=== PATIENT | male | born 1985 | race Caucasian/White ===

== ENCOUNTER 2016-08-16 20:23 | Inpatient (IN) | payer MEDICAID ==
[~2016-08-16] VITALS: Ht 180.3 cm; Wt 85.0 kg
--- NOTE | ~2016-08-16 | PR ---
[place], [place] PROGRESS NOTE [id number] UNIT #: [id number] ROOM: 427 DOCTOR: JORDI PATEL MD BIRTHDATE: [birth year] DOS: 08/18/2016 SUBJECTIVE: The patient says his ankle swelling and redness has started improving with treatment with antibiotics. OBJECTIVE: VITAL SIGNS: Blood pressure 169/91, heart rate 61 beats and breathing 20 times per minute, temperature was 98.1 degrees Fahrenheit. GENERAL APPEARANCE: The patient is alert and oriented x 3, in no visible distress. HEENT AND NECK: Exam within normal limits. CARDIOVASCULAR SYSTEM: Heart rate is regular in rate and rhythm. S1 and S2 normally audible. LUNGS: Clear to auscultation. ABDOMEN: Soft, nontender. No obvious organomegaly. Bowel sounds are present. EXTREMITIES: Some redness and swelling in his left ankle which is improving. IMPRESSION: 1. The patient with cellulitis involving left ankle with 2 superficial skin wounds and he is an uncontrolled diabetic. Infection, and swelling and redness have started improving with treatment with IV Rocephin and vancomycin. The patient has been seen by Dr. May Yoon, the Infectious Disease specialist. 2. Type 1 diabetes mellitus with uncontrolled blood sugar and poor compliance with diet and treatment. 3. Chronic primary insomnia. Treated and controlled with temazepam. 4. Diabetic gastroparesis, treated with metoclopramide. The patient is asymptomatic. 5. Mixed hyperlipidemia. The patient on simvastatin, also takes aspirin. JORDI PATEL MD CM:PNTRANS [phone] JORDI PATEL MD 08/19/16 0451 interface
--- NOTE | ~2016-08-16 | WRIGHTHP ---
[place], [place] PATIENT HISTORY AND PHYSICAL EXAM NAME: MAXINE FULTON [facility] #: [id number] UNIT #: [id number] ROOM: 408 DOCTOR: JORDI PATEL MD BIRTHDATE: [birth year] DOS: 08/16/2016 HISTORY OF PRESENT ILLNESS: The patient is a 30-year-old gentleman with a past medical history of: 1. Type 1 insulin requiring diabetes mellitus, uncontrolled and poor compliance with treatment. 2. History of nicotine smoke dependence. 3. Poor compliance with treatment and previous history of diabetic ketoacidosis. 4. History of recurrent abdominal pains. 5. History of marijuana abuse. 6. Remote history of alcohol abuse. 7. History of peripheral diabetic polyneuropathy. The patient presented to the Emergency Department with complaints of increasing redness and swelling in his left ankle and leg area, it is spreading from some blisters that patient says he had few days earlier. The patient tells he was putting an antibiotic ointment on the area with no help. The patient was seen in the Emergency Department and diagnosed as having cellulitis involving the left ankle area with two small skin wounds. Being an uncontrolled diabetic, he was recommended for admission and further management. After admission, patient was started on IV vancomycin and Rocephin and the swelling and redness and the cellulitis has started improving. The patient was also seen by ID specialist, Dr. May Yoon, recommended doxycycline treatment after discharge as an outpatient. Type 1 diabetes mellitus uncontrolled, the patient is poorly compliant with diet and diabetic treatment. Blood sugars to be monitored. No chest pain. No shortness of breath. No GI or urinary symptoms. REVIEW OF SYSTEMS: LUNGS: No increasing shortness of breath or wheezing. GI: No nausea, vomiting, diarrhea or constipation. CARDIOVASCULAR: No chest pains or palpitations. SOCIAL HISTORY: , has 2 children. History of nicotine and alcohol abuse in the past, he still smokes cigarettes and also smokes marijuana off and on. FAMILY HISTORY: Noncontributory. HOME MEDICATIONS: The patient's home medications are aspirin, simvastatin, gabapentin, Levemir insulin, metoclopramide, lisinopril and temazepam. ALLERGIES: No known drug allergies. PHYSICAL EXAMINATION: GENERAL: Alert and oriented x 3, in no physical distress. The patient has swelling in 2 small areas of skin break just over his left ankle and spreading redness and swelling in the area, measuring about 5 inches in diameter. [place], [place] PATIENT HISTORY AND PHYSICAL EXAM NAME: MAXINE FULTON UNIT #: [id number] ROOM: [facility] DOCTOR: JORDI PATEL MD BIRTHDATE: [birth year] HEENT AND NECK: Extraocular movements are intact. Sclerae are anicteric. Oral mucosa is moist and clean. No obvious facial weakness. Neck is supple without any lymphadenopathy. No thyromegaly. No JVD. No carotid arterial bruits. LUNGS: Clear to auscultation. No wheezing. No rhonchi. CARDIOVASCULAR SYSTEM: Heart rate is regular in rate and rhythm. S1 and S2 normally audible. No significant murmur or any other abnormal cardiac sounds. ABDOMEN: Soft, nontender. No obvious organomegaly. Bowel sounds are present. No obvious herniation. EXTREMITIES: Without significant cyanosis or edema. Warm to touch. CENTRAL NERVOUS SYSTEM: Alert and oriented x 3. Cranial nerves II-XII are intact. Speech is normal. The patient is able to move all extremities. Normal muscle strength. Deep tendon reflexes are equal on both sides. Plantars were downgoing. LABORATORY DATA: Blood cultures negative. Wound cultures are negative. C-reactive protein is 0.64. No leukocytosis, normal CBC. Urine drug screen positive for benzodiazepines and marijuana. Doppler studies of the left leg were negative for deep vein thrombosis. IMPRESSION AND PLAN: 1. Type 1 uncontrolled diabetic with poor compliance with treatment and diet. The patient is started on no concentrated sweet diet, continued on insulin, blood sugars were ordered, and he was kept on a sliding scale of insulin. Sugars are ranging between 60 and 250 during the stay at the hospital. 2. As mentioned above, cellulitis involving left ankle, improving with antibiotics. The patient to be discharged to home tomorrow after completing his IV antibiotics at the hospital and he will be kept on doxycycline at home as recommended by Infectious Disease specialist. 3. Benign essential hypertension, blood pressures are controlled. The patient is on small dose of lisinopril. 4. Diabetic gastroparesis. The patient takes metoclopramide. He was asymptomatic. 5. Mixed hyperlipidemia, treated with simvastatin. 6. Chronic primary insomnia, treated with temazepam which has been continued. [place], [place] PATIENT HISTORY AND PHYSICAL EXAM NAME: MAXINE FULTON UNIT #: [id number] ROOM: 408 DOCTOR: JORDI PATEL MD BIRTHDATE: [birth year] JORDI PATEL MD CM:HISPHYS:PATIENT HISTORY AND PHYSICAL EXAMINATION [phone] [id number] JORDI PATEL MD 08/18/16 170 interface
--- NOTE | ~2016-08-16 | DS ---
[place], [place] DISCHARGE SUMMARY [id number] UNIT #: [id number] ROOM: 427 DOCTOR: JORGE JCJORDI Brittanie BIRTHDATE: [birth year] DOS: 08/19/2016 DISCHARGE DIAGNOSES: 1. Left ankle cellulitis with 2 superficial skin wounds, healing. Cellulitis resolved with treatment. 2. Type 1 diabetes mellitus, uncontrolled, with poor compliance with diet and treatment. 3. Chronic primary insomnia. 4. Diabetic gastroparesis history. 5. Mixed type hyperlipidemia. 6. History of marijuana abuse. 7. Remote history of alcohol abuse. 8. Diabetic peripheral polyneuropathy. 9. Nicotine smoke dependence. HOSPITAL COURSE: The patient presented to the Emergency Department with increasing redness and swelling in his left ankle area. The patient says it started like small blisters, which broke and then he was putting antibiotic ointment on it, but started spreading into his skin and he came to the Emergency Department. Being a diabetic with peripheral neuropathy and uncontrolled diabetes, he was admitted for IV antibiotics. Infectious Disease specialists were consulted and he was initially treated with Rocephin and vancomycin and his redness and swelling and cellulitis have completely resolved. The patient still has 2 small superficial skin lesions on the inner side of the left ankle and he was recommended to take doxycycline for 10 days after admission by Infectious Disease specialist. The patient is being discharged to home to follow up with his PCP, Dr. Jailene David, next week. Type 1 diabetes mellitus, uncontrolled. The patient is poorly compliant with his diet and treatment. Blood sugars at the hospital improved and are now generally ranging between 90-270. Nicotine smoke dependence. The patient encouraged to stop smoking cigarettes. He has been leaving the floor, his room, apparently out to smoke cigarettes against regulations. LABORATORY DATA: Blood cultures were negative. Normal CBC prior to discharge. Wound cultures were negative. DISCHARGE MANAGEMENT: Simvastatin 10 mg a day, aspirin 81 mg a day, gabapentin 800 mg b.i.d., metoclopramide 2.5 mg before meals, lisinopril 2.5 mg daily, doxycycline 100 mg b.i.d. for 10 days, temazepam 30 mg at bedtime p.r.n. for sleep. Follow up with his PCP, Dr. Jailene David, next week. [place], [place] DISCHARGE SUMMARY NAME: MAXINE FULTON UNIT #: [id number] ROOM: 427 DOCTOR: JORDI PATEL MD BIRTHDATE: [birth year] JORDI PATEL MD CM:ALONA [phone] JORDI PATEL MD 08/19/16 1725 interface
[~2016-08-16 20:23] MED LIST: ACTOS15 MG PO; AMOXIL500 M1 PO; AMOXIL500 MG PO; ANAPROX DS550 MG PO; ASPIRIN81 M1 PO; AUGMENTIN 875 M1 TAB PO; GABAPENTIN300 MG PO; GABAPENTIN800 MG PO; HUMALOG 751 UNIT/0.0 SC; HUMALOG100 U/ML SC; HUMULIN 70/30 703 M1 SC; INSULIN; JANUMET 500 MG-1 TA1 PO; LANTUS SOLOS100 U/M1 SC; LANTUS100 U/ML SC; LIPITOR20 MG PO; LIPITOR40 MG PO; LOMOTIL 0.025 M1 TAB PO; METFORMIN HCL500 MG PO; MOTRIN800 MG PO; NEURONTIN800 MG PO; NOVOLOG 701 UNIT/0.0 SC; NOVOLOG MIX 70/33 ML SC; NOVOLOG1 UNIT/0.0 SC; NOVOLOG10 ML IV; VICODIN1 TAB PO; ZESTRIL,PRINIVI20 MG PO; ZESTRIL10 MG PO; ZITHROMAX1 GM/PACKE; Zofran4 MG PO
[2016-08-16 20:39] VITALS: BP 135/73
[2016-08-16] MEDS ORDERED: LISINOPRIL5 MG PO (20:40)
[2016-08-16] MEDS ORDERED: REGLAN5 MG PO (20:41)
[2016-08-16] MEDS ORDERED: ASPIRIN ADULT L81 M1 PO (20:41)
[2016-08-16] MEDS ORDERED: ZOCOR10 MG PO (20:41)
[2016-08-16] MEDS ORDERED: VITAMIN D50000 UNIT PO (20:41)
[2016-08-16 21:26] LABS: BASO % 0.2 % (0.0-1.0); EOS # 0.2 10*3/uL (0.0-0.4); EOS % 2.1 % (1.0-4.0); HEMATOCRIT 38.8 % (42.0-52.0); HEMOGLOBIN 13.7 g/dl (14.0-18.0); LYMPH % 27.7 % (27.0-41.0); MEAN CELL VOLUME 84.9 fl (80.0-94.0); MEAN CORPUSCULAR HGB CONC 35.3 g/dl (33.0-37.0); MEAN PLATELET VOLUME 10.3 fl (9.6-12.3); MONO # 0.8 10*3/uL (0.1-1.0); NEUT # 6.7 10*3/uL (2.3-7.9); NEUT % 62.7 % (47.0-73.0); PLATELET COUNT AUTOMATED 156 10*3/uL (130-400); RED BLOOD COUNT 4.57 10*6/uL (4.50-5.90); RED CELL DISTRI WIDTH 12.3 % (0-14.5); WHITE BLOOD COUNT 10.7 10*3/uL (4.8-10.8)
[2016-08-16 21:41] LABS: ALBUMIN 3.4 gm/dl (3.1-4.5); ALKALINE PHOSPHATASE 99 U/L (45-117); BILIRUBIN, TOTAL 0.8 mg/dl (0.2-1.0); BUN 13 mg/dl (7-24); CARBON DIOXIDE 29 mmol/L (21-32); CHLORIDE 102 mmol/L (98-107); EST GLOM FILT AFRICAN AMERICAN > 60 ml/min; GLUCOSE 280 mg/dL (65-99); POTASSIUM 4.1 mmol/L (3.5-5.1); SGOT/AST 12 IU/L (3-35); SGPT/ALT 26 U/L (12-78); SODIUM 140 mmol/L (136-145); TOTAL PROTEIN 6.7 gm/dL (6.4-8.2)
[2016-08-16 21:48] LABS: TROPONIN I < 0.015 ng/ml (<0.045)
[2016-08-16 22:13] LABS: BILIRUBIN NEGATIVE (NEGATIVE); BLOOD TRACE-INTACT (NEGATIVE); CLARITY SL CLOUDY (CLEAR); COLOR YELLOW (YELLOW); GLUCOSE 3+ (NEGATIVE); KETONE NEGATIVE (NEGATIVE); LEUKO ESTERASE NEGATIVE (NEGATIVE); NITRITE NEGATIVE (NEGATIVE); PH 5.5 (5.0-9.0); PROTEIN NEGATIVE (NEGATIVE); SPECIFIC GRAVITY 1.025 (1.005-1.030)
[2016-08-16 22:26] LABS: ABG BASE EXCESS 1.9 mmol/L (-2.0-2.0); ABG CO2 CONTENT 27.9 mmol/L (23-27); ABG HCO3 26.5 mmol/l (22-26); ABG TEMPERATURE 98.3 F (98.0-99.0); ARTERIAL BLOOD GAS PH 7.402 (7.35-7.45)
[2016-08-16 22:28] LABS: URINE AMPHETAMINES < 1000 (1000ng/ml); URINE BARBITURATES < 200 (200ng/ml); URINE COCAINE < 300 (300ng/ml)
[2016-08-16 22:29] LABS: MUCOUS TRACE; WBC 0-2 wbc/hpf (0-5)
[2016-08-16 22:30] LABS: URINE REFLEX COMMENT NO (NO)
[2016-08-17 00:30] VITALS: BP 125/70
[2016-08-17] MEDS ORDERED: TEMAZEPAM30 MG PO (00:34)
[2016-08-17] MEDS ORDERED: LANTUS SOLOS100 U/M1 SC (00:36)
[2016-08-17 04:00] VITALS: BP 122/76
[2016-08-17 08:00] VITALS: BP 93/80
[2016-08-17 12:00] VITALS: BP 114/55
[2016-08-17 16:00] VITALS: BP 108/64
[2016-08-17 20:00] VITALS: BP 112/62
[2016-08-18] VITALS: BP 106/65
[2016-08-18 06:53] LABS: BASO % 0.3 % (0.0-1.0); EOS # 0.2 10*3/uL (0.0-0.4); EOS % 3.2 % (1.0-4.0); HEMATOCRIT 42.9 % (42.0-52.0); HEMOGLOBIN 14.8 g/dl (14.0-18.0); LYMPH # 3.5 10*3/uL (1.3-4.4); LYMPH % 47.6 % (27.0-41.0); MEAN CELL VOLUME 85.8 fl (80.0-94.0); MEAN CORPUSCULAR HGB 29.6 pg (27.0-31.0); MEAN CORPUSCULAR HGB CONC 34.5 g/dl (33.0-37.0); MEAN PLATELET VOLUME 11.2 fl (9.6-12.3); MONO # 0.4 10*3/uL (0.1-1.0); MONO % 5.9 % (3.0-9.0); NEUT # 3.2 10*3/uL (2.3-7.9); NEUT % 42.9 % (47.0-73.0); PLATELET COUNT AUTOMATED 182 10*3/uL (130-400); RED CELL DISTRI WIDTH 12.4 % (0-14.5); WHITE BLOOD COUNT 7.4 10*3/uL (4.8-10.8)
[2016-08-18 08:00] VITALS: BP 103/51
[2016-08-18 12:00] VITALS: BP 169/91
[2016-08-18] MEDS ORDERED: DOXYCYCLINE100 M3 PO (14:56)
[2016-08-18 16:00] VITALS: BP 119/68
[2016-08-18 20:00] VITALS: BP 134/82
[2016-08-19] VITALS: BP 114/68
[2016-08-19 06:55] LABS: BASO % 0.2 % (0.0-1.0); EOS # 0.1 10*3/uL (0.0-0.4); HEMATOCRIT 40.5 % (42.0-52.0); LYMPH # 2.5 10*3/uL (1.3-4.4); LYMPH % 38.6 % (27.0-41.0); MEAN CELL VOLUME 85.6 fl (80.0-94.0); MEAN CORPUSCULAR HGB 29.6 pg (27.0-31.0); MEAN CORPUSCULAR HGB CONC 34.6 g/dl (33.0-37.0); MEAN PLATELET VOLUME 10.9 fl (9.6-12.3); MONO # 0.5 10*3/uL (0.1-1.0); MONO % 8.3 % (3.0-9.0); NEUT # 3.2 10*3/uL (2.3-7.9); NEUT % 50.6 % (47.0-73.0); PLATELET COUNT AUTOMATED 175 10*3/uL (130-400); RED BLOOD COUNT 4.73 10*6/uL (4.50-5.90); RED CELL DISTRI WIDTH 12.1 % (0-14.5); WHITE BLOOD COUNT 6.4 10*3/uL (4.8-10.8)
[2016-08-19 07:36] LABS: BUN 9 mg/dl (7-24); EST GLOM FILT AFRICAN AMERICAN > 60 ml/min
[2016-08-19 08:00] VITALS: BP 112/65
[2016-08-19 12:00] VITALS: BP 124/69
== END 2016-08-19 15:59 | disposition home or self-care (01) | DRG 603 ==
LOC: ED 20:23 → 4E 22:59 → EDHOLD 22:59 → 4E 08-17 00:05
PROVIDERS: Emergency Medicine Emergency Medical Services; Hospitalist; Internal Medicine
DX: L03.116 Cellulitis of left lower limb (principal); K31.84 Gastroparesis; E10.65 Type 1 diabetes mellitus with hyperglycemia; E10.42 Type 1 diabetes mellitus with diabetic polyneuropathy; E44.1 Mild protein-calorie malnutrition; F17.210 Nicotine dependence, cigarettes, uncomplicated; I10 Essential (primary) hypertension; E78.2 Mixed hyperlipidemia; F51.01 Primary insomnia; F17.200 Nicotine dependence, unspecified, uncomplicated; F12.10 Cannabis abuse, uncomplicated; Z79.82 Long term (current) use of aspirin; Z82.5 Family history of asthma and other chronic lower respiratory diseases; Z83.3 Family history of diabetes mellitus; Z79.4 Long term (current) use of insulin; Z79.899 Other long term (current) drug therapy; Z68.26 Body mass index [BMI] 26.0-26.9, adult

== ENCOUNTER 2017-05-03 20:51 | Emergency (ER) | payer MEDICAID ==
[~2017-05-03] VITALS: Ht 175.2 cm; Wt 81.6 kg
[~2017-05-03 20:51] MED LIST changes: +ASPIRIN ADULT L81 M1 PO; +DOXYCYCLINE100 M3 PO; +LISINOPRIL5 MG PO; +REGLAN5 MG PO; +TEMAZEPAM30 MG PO; +VITAMIN D50000 UNIT PO; +ZOCOR10 MG PO
[2017-05-03 21:31] LABS: BASO % 0.1 % (0.0-1.0); EOS # 0.1 10*3/uL (0.0-0.4); EOS % 1.1 % (1.0-4.0); HEMATOCRIT 37.3 % (42.0-52.0); HEMOGLOBIN 13.4 g/dl (14.0-18.0); LYMPH # 3.2 10*3/uL (1.3-4.4); MEAN CELL VOLUME 82.7 fl (80.0-94.0); MEAN CORPUSCULAR HGB 29.7 pg (27.0-31.0); MEAN CORPUSCULAR HGB CONC 35.9 g/dl (33.0-37.0); MONO # 0.5 10*3/uL (0.1-1.0); MONO % 6.5 % (3.0-9.0); NEUT # 4.2 10*3/uL (2.3-7.9); NEUT % 52.2 % (47.0-73.0); PLATELET COUNT AUTOMATED 180 10*3/uL (130-400); RED BLOOD COUNT 4.51 10*6/uL (4.50-5.90); RED CELL DISTRI WIDTH 12.5 % (0-14.5)
[2017-05-03 21:47] LABS: ALKALINE PHOSPHATASE 93 U/L (45-117); BUN 12 mg/dl (7-24); CHLORIDE 96 mmol/L (98-107); POTASSIUM 3.2 mmol/L (3.5-5.1); SGOT/AST 9 IU/L (3-35); SGPT/ALT 21 U/L (12-78); SODIUM 131 mmol/L (136-145); TOTAL PROTEIN 7.1 gm/dL (6.4-8.2)
[2017-05-03] MEDS ORDERED: NAPROSYN500 MG PO (21:57)
[2017-05-03] MEDS ORDERED: AMOXICILLIN500 M2 PO (21:57)
== END 2017-05-03 23:40 | disposition home or self-care (01) ==
LOC: ED 20:51
PROVIDERS: Nurse Practitioner Family
DX: K08.89 Other specified disorders of teeth and supporting structures (principal); E10.9 Type 1 diabetes mellitus without complications; F17.200 Nicotine dependence, unspecified, uncomplicated; Z79.899 Other long term (current) drug therapy; Z79.82 Long term (current) use of aspirin; Z79.4 Long term (current) use of insulin

== ENCOUNTER 2017-07-13 15:39 | Emergency (ER) | payer MEDICAID ==
[~2017-07-13] VITALS: Ht 180.3 cm; Wt 83.9 kg
[~2017-07-13 15:39] MED LIST changes: +AMOXICILLIN500 M2 PO; +NAPROSYN500 MG PO
[2017-07-13 16:35] LABS: BASO % 0.1 % (0.0-1.0); EOS # 0.1 10*3/uL (0.0-0.4); EOS % 1.1 % (1.0-4.0); HEMATOCRIT 45.1 % (42.0-52.0); HEMOGLOBIN 15.8 g/dl (14.0-18.0); LYMPH # 1.9 10*3/uL (1.3-4.4); LYMPH % 26.2 % (27.0-41.0); MEAN CELL VOLUME 84.8 fl (80.0-94.0); MEAN CORPUSCULAR HGB 29.7 pg (27.0-31.0); MEAN PLATELET VOLUME 10.2 fl (9.6-12.3); MONO # 0.3 10*3/uL (0.1-1.0); MONO % 4.6 % (3.0-9.0); NEUT % 67.7 % (47.0-73.0); PLATELET COUNT AUTOMATED 191 10*3/uL (130-400); RED BLOOD COUNT 5.32 10*6/uL (4.50-5.90); RED CELL DISTRI WIDTH 12.4 % (0-14.5); WHITE BLOOD COUNT 7.4 10*3/uL (4.8-10.8)
[2017-07-13 16:49] LABS: ALBUMIN 4.1 gm/dl (3.1-4.5); ALKALINE PHOSPHATASE 85 U/L (45-117); BUN 26 mg/dl (7-24); CHLORIDE 93 mmol/L (98-107); CREATININE 1.27 mg/dL (0.70-1.30); LIPASE 34 U/L (73-393); POTASSIUM 3.8 mmol/L (3.5-5.1); SGOT/AST 23 IU/L (3-35); SGPT/ALT 30 U/L (12-78); SODIUM 134 mmol/L (136-145); TOTAL PROTEIN 7.9 gm/dL (6.4-8.2)
[2017-07-13] MEDS ORDERED: Zofran4 MG PO (17:54)
== END 2017-07-13 17:58 | disposition home or self-care (01) ==
LOC: ED 15:39
PROVIDERS: Emergency Medicine
DX: K29.70 Gastritis, unspecified, without bleeding (principal); E10.65 Type 1 diabetes mellitus with hyperglycemia; G62.9 Polyneuropathy, unspecified; F17.200 Nicotine dependence, unspecified, uncomplicated; F12.10 Cannabis abuse, uncomplicated; F14.10 Cocaine abuse, uncomplicated; Z79.82 Long term (current) use of aspirin; Z79.4 Long term (current) use of insulin; Z79.899 Other long term (current) drug therapy

== ENCOUNTER 2017-07-28 15:32 | Inpatient (IN) | payer MEDICAID ==
[2017-07-28] VITALS (7 sets, daily range): BP systolic 116–162; BP diastolic 64–84
[~2017-07-28] VITALS: Ht 180.3 cm; Wt 75.5 kg
--- NOTE | ~2017-07-28 | WRIGHTHP ---
[place], [place] PATIENT HISTORY AND PHYSICAL EXAM [id number] UNIT #: [id number] ROOM: [facility] DOCTOR: MECHE ROCK MD BIRTHDATE: [birth year] DOS: 07/28/2017 HISTORY OF PRESENT ILLNESS: This patient is 31-year-old. The patient states that he has been nauseous and sick in his stomach for the last 2-3 days prior to this admission and he has had multiple emesis and he has missed a few doses of insulin. He realized that he was having flank pain and continued to have high sugar, so decided to come into the Emergency Room. He denies having any fever, chills, any chest pains, palpitations, any abdominal pain, nausea, any emesis today. He feels better. He was seen in the Emergency Room and blood work revealed that he has diabetic ketoacidosis and he was admitted. With insulin drip and IV fluids, the diabetic ketoacidosis has corrected. The ketone levels have dropped down to normal this morning. PAST MEDICAL HISTORY: Significant for: 1. Type 1 diabetes mellitus. 2. Multiple hospitalizations for DKA,, the last one was 07/2016. 3. Diabetic gastroparesis. 4. Primary insomnia. 5. Diabetic peripheral neuropathy. SOCIAL HISTORY: Smokes about half to 1 pack of cigarettes a day. Denies any use of alcohol now. He lives with his and 2 children. PHYSICAL EXAMINATION: GENERAL: He is awake and alert and oriented. VITAL SIGNS: Graphic trend shows blood pressure of 117/84, pulse of 88, respirations 14, temperature 97.8. LUNGS: Diminished breath sounds. No wheezes, rales, rhonchi heard. HEART: Regular. ABDOMEN: Obese, soft, nontender. EXTREMITIES: Without any edema. ASSESSMENT AND PLAN: 1. Type 1 diabetes mellitus with diabetic ketoacidosis without coma. The patient has been admitted, IV insulin and IV fluids were ordered. This morning, the diabetic ketoacidosis has corrected. 2. Possible urinary tract infection. White cell count was normal on admission, but the urinalysis did show presence of 2+ bacteria. A reflex culture was sent. It shows preliminary no bacterial growth, but the patient was placed on Levaquin and can be discharged on the same medication. 3. Diabetic peripheral neuropathy, already on meds. No changes made in the treatment otherwise. [place], [place] PATIENT HISTORY AND PHYSICAL EXAM NAME: MAXINE FULTON UNIT #: [id number] ROOM: [facility] DOCTOR: MECHE ROCK MD BIRTHDATE: [birth year] MECHE ROCK MD CM:HISPHYS:PATIENT HISTORY AND PHYSICAL EXAMINATION [id number] MECHE ROCK MD 07/29/17 1740 interface
[~2017-07-28 15:32] MED LIST changes: +LANTUS SOL100 UNIT/1 SC
[2017-07-28 15:58] LABS: BASO % 0.2 % (0.0-1.0); EOS # 0.1 10*3/uL (0.0-0.4); EOS % 0.5 % (1.0-4.0); HEMATOCRIT 42.2 % (42.0-52.0); HEMOGLOBIN 15.2 g/dl (14.0-18.0); LYMPH # 2.2 10*3/uL (1.3-4.4); LYMPH % 22.1 % (27.0-41.0); MEAN CELL VOLUME 83.1 fl (80.0-94.0); MEAN CORPUSCULAR HGB 29.9 pg (27.0-31.0); MEAN PLATELET VOLUME 11.6 fl (9.6-12.3); MONO # 0.5 10*3/uL (0.1-1.0); NEUT # 7.2 10*3/uL (2.3-7.9); NEUT % 71.9 % (47.0-73.0); PLATELET COUNT AUTOMATED 231 10*3/uL (130-400); RED BLOOD COUNT 5.08 10*6/uL (4.50-5.90); RED CELL DISTRI WIDTH 12.2 % (0-14.5)
[2017-07-28 16:38] LABS: ALBUMIN 4.1 gm/dl (3.1-4.5); ALKALINE PHOSPHATASE 85 U/L (45-117); BUN 18 mg/dl (7-24); CHLORIDE 93 mmol/L (98-107); CREATININE 1.12 mg/dL (0.70-1.30); LIPASE 35 U/L (73-393); POTASSIUM 4.2 mmol/L (3.5-5.1); SGOT/AST 10 IU/L (3-35); SGPT/ALT 21 U/L (12-78); SODIUM 130 mmol/L (136-145); TOTAL PROTEIN 7.2 gm/dL (6.4-8.2)
[2017-07-28 17:17] LABS: BILIRUBIN 1+ (NEGATIVE); BLOOD 3+ (NEGATIVE); CLARITY SL CLOUDY (CLEAR); COLOR YELLOW (YELLOW); GLUCOSE 2+ (NEGATIVE); KETONE 3+ (NEGATIVE); LEUKO ESTERASE NEGATIVE (NEGATIVE); NITRITE NEGATIVE (NEGATIVE); PH 5.5 (5.0-9.0); SPECIFIC GRAVITY >= 1.030 (1.005-1.030); UROBILINOGEN 0.2 E.U./dl (0.2-1.0)
[2017-07-28 17:29] LABS: BACTERIA 2+; EPITHELIAL CELLS 0-2; MUCOUS TRACE; RBC 16-20 rbc/hpf (0-2); WBC 0-2 wbc/hpf (0-5)
[2017-07-28] MEDS ORDERED: HUMALOG100 UNIT/2 SC (18:27)
[2017-07-28] MEDS ORDERED: AMITRIPTYLINE25 MG PO (18:29)
[2017-07-29] VITALS: BP 119/71
[2017-07-29 04:00] VITALS: BP 108/51
[2017-07-29 06:06] LABS: BUN 16 mg/dl (7-24); CHLORIDE 102 mmol/L (98-107); CREATININE 1.09 mg/dL (0.70-1.30)
[2017-07-29 06:21] LABS: SODIUM 139 mmol/L (136-145)
[2017-07-29 06:49] LABS: BASO % 0.2 % (0.0-1.0); EOS # 0.2 10*3/uL (0.0-0.4); EOS % 2.3 % (1.0-4.0); LYMPH % 54.8 % (27.0-41.0); MEAN CELL VOLUME 83.1 fl (80.0-94.0); MEAN CORPUSCULAR HGB 30.3 pg (27.0-31.0); MEAN CORPUSCULAR HGB CONC 36.4 g/dl (33.0-37.0); MEAN PLATELET VOLUME 10.9 fl (9.6-12.3); MONO # 0.6 10*3/uL (0.1-1.0); MONO % 6.1 % (3.0-9.0); NEUT # 3.3 10*3/uL (2.3-7.9); NEUT % 36.4 % (47.0-73.0); RED BLOOD COUNT 4.26 10*6/uL (4.50-5.90); RED CELL DISTRI WIDTH 12.2 % (0-14.5); WHITE BLOOD COUNT 9.1 10*3/uL (4.8-10.8)
[2017-07-29 07:01] LABS: HEMATOCRIT 35.4 % (42.0-52.0); HEMOGLOBIN 12.9 g/dl (14.0-18.0); PLATELET COUNT AUTOMATED 157 10*3/uL (130-400)
[2017-07-29 08:00] VITALS: BP 118/67
[2017-07-29 12:00] VITALS: BP 117/84
[2017-07-29] MEDS ORDERED: CIPRO500 MG PO (15:35)
[2017-07-29] MEDS ORDERED: LANTUS SOL100 UNIT/1 SC (15:35)
== END 2017-07-29 16:00 | disposition home or self-care (01) | DRG 638 ==
LOC: ED 15:32 → EDHOLD 16:55 → ICCU 17:08
PROVIDERS: Internal Medicine; Nurse Practitioner Family
DX: E10.10 Type 1 diabetes mellitus with ketoacidosis without coma (principal); N39.0 Urinary tract infection, site not specified; E10.42 Type 1 diabetes mellitus with diabetic polyneuropathy; F51.01 Primary insomnia; F17.210 Nicotine dependence, cigarettes, uncomplicated; Z79.82 Long term (current) use of aspirin; Z79.4 Long term (current) use of insulin; Z79.899 Other long term (current) drug therapy; Z83.3 Family history of diabetes mellitus; Z82.5 Family history of asthma and other chronic lower respiratory diseases

== ENCOUNTER 2017-11-15 14:43 | Inpatient (IN) | payer MEDICAID ==
[~2017-11-15] VITALS: Ht 180 cm; Wt 76.7 kg
--- NOTE | ~2017-11-15 | WRIGHTHP ---
[place], [place] PATIENT HISTORY AND PHYSICAL EXAM NAME: MAXINE FULTON [facility] #: [id number] UNIT #: [id number] ROOM: 526 DOCTOR: MECHE ROCK MD BIRTHDATE: [birth year] DOS: 11/15/2017 HISTORY OF PRESENT ILLNESS: The patient is 32 years old. The patient comes with nausea and emesis about 1-day duration. He denies having any chest pains or palpitations, did have some abdominal discomfort. Denies having any fever or chills, was evaluated in the ER. Ketones were slightly positive, but he did not appear to be acidotic, so we did not admit him in the ICU, on an insulin drip instead. The patient was given IV fluids and admitted to the regular floor. The patient this morning has no complaints. His nausea and emesis, abdominal pain is all resolved. His blood sugars have been running much improved this morning at 213. Denies having any chest pains. PAST MEDICAL HISTORY: Significant for: 1. Last hospitalization in 07/2017 with a similar problem. 2. Type 1 diabetes. 3. Multiple hospitalizations for diabetic ketoacidosis. 4. Gastroparesis. 5. Primary insomnia. 6. Diabetic peripheral neuropathy. MEDICATIONS: Aspirin 81 daily, vitamin D 50,000, gabapentin 800 b.i.d., lisinopril 2.5 daily, metoclopramide 2.5 b.i.d., simvastatin 10 daily, lisinopril, Humalog 10 units subQ b.i.d., Lantus 40 units. SOCIAL HISTORY: Smoker of about half a pack of cigarettes. Denies using any alcohol. PHYSICAL EXAMINATION: GENERAL: He is awake and alert and oriented. VITAL SIGNS: Graph trend shows a pressure of 132/70, pulse of 80, respirations 14, afebrile. LUNGS: Diminished breath sounds. No wheezes, rales or rhonchi heard. HEART: Regular. ABDOMEN: Soft, scaphoid. EXTREMITIES: Without any edema. ASSESSMENT AND PLAN: 1. Nausea and emesis, most likely from combination of diabetic gastroparesis and acute gastritis. This is resolved. 2. Poorly controlled diabetes with hyperglycemia, improved with IV fluids. 3. Diabetic peripheral neuropathy. Pain is controlled,. The plan is to discharge him to home today. [place], [place] PATIENT HISTORY AND PHYSICAL EXAM NAME: MAXINE FULTON UNIT #: [id number] ROOM: 526 DOCTOR: MECHE ROCK MD BIRTHDATE: [birth year] MECHE ROCK MD CM:HISPHYS:PATIENT HISTORY AND PHYSICAL EXAMINATION [phone] MECHE ROCK MD 11/16/17 0822 interface
[~2017-11-15 14:43] MED LIST changes: +AMITRIPTYLINE25 MG PO; +CIPRO500 MG PO; +HUMALOG100 UNIT/2 SC
[2017-11-15 14:45] VITALS: BP 166/87
[2017-11-15 14:56] VITALS: BP 133/77
[2017-11-15 15:45] VITALS: BP 122/78
[2017-11-15 16:38] LABS: BASO % 0.1 % (0.0-1.0); EOS % 0.2 % (1.0-4.0); HEMATOCRIT 40.6 % (42.0-52.0); HEMOGLOBIN 13.7 g/dl (14.0-18.0); LYMPH # 1.8 10*3/uL (1.3-4.4); LYMPH % 14.9 % (27.0-41.0); MEAN CELL VOLUME 86.8 fl (80.0-94.0); MEAN CORPUSCULAR HGB 29.3 pg (27.0-31.0); MEAN CORPUSCULAR HGB CONC 33.7 g/dl (33.0-37.0); MONO # 0.6 10*3/uL (0.1-1.0); MONO % 4.9 % (3.0-9.0); NEUT # 9.5 10*3/uL (2.3-7.9); NEUT % 79.4 % (47.0-73.0); PLATELET COUNT AUTOMATED 186 10*3/uL (130-400); RED BLOOD COUNT 4.68 10*6/uL (4.50-5.90); RED CELL DISTRI WIDTH 12.6 % (0-14.5); WHITE BLOOD COUNT 11.9 10*3/uL (4.8-10.8)
[2017-11-15 16:46] LABS: ACT PARTIAL THROMBO TIME 21.9 SECONDS (20.8-31.5)
[2017-11-15 16:53] LABS: ALBUMIN 3.8 gm/dl (3.1-4.5); ALKALINE PHOSPHATASE 86 U/L (45-117); BUN 26 mg/dl (7-24); CHLORIDE 100 mmol/L (98-107); CREATININE 1.19 mg/dL (0.70-1.30); LIPASE 32 U/L (73-393); POTASSIUM 4.3 mmol/L (3.5-5.1); SGOT/AST 5 IU/L (3-35); SGPT/ALT 17 U/L (12-78); SODIUM 137 mmol/L (136-145); TOTAL PROTEIN 7.1 gm/dL (6.4-8.2); TROPONIN I < 0.015 ng/ml (<0.045)
[2017-11-15 17:08] LABS: BILIRUBIN 2+ (NEGATIVE); BLOOD 3+ (NEGATIVE); CLARITY CLEAR (CLEAR); COLOR YELLOW (YELLOW); GLUCOSE 2+ (NEGATIVE); KETONE 3+ (NEGATIVE); LEUKO ESTERASE NEGATIVE (NEGATIVE); NITRITE NEGATIVE (NEGATIVE); SPECIFIC GRAVITY 1.025 (1.005-1.030); UROBILINOGEN 0.2 E.U./dl (0.2-1.0)
[2017-11-15 17:15] LABS: BACTERIA TRACE; MUCOUS 1+
[2017-11-15 17:16] LABS: EPITHELIAL CELLS 0-2; RBC 31-40 rbc/hpf (0-2)
[2017-11-15 18:50] VITALS: BP 137/70
[2017-11-15] MEDS ORDERED: LANTUS SOL100 UNIT/1 SQ (19:47)
[2017-11-15 20:00] VITALS: BP 122/69
[2017-11-16] VITALS: BP 115/64
[2017-11-16 06:26] LABS: BASO % 0.2 % (0.0-1.0); EOS # 0.2 10*3/uL (0.0-0.4); EOS % 2.3 % (1.0-4.0); HEMATOCRIT 36.3 % (42.0-52.0); HEMOGLOBIN 12.5 g/dl (14.0-18.0); LYMPH # 4.1 10*3/uL (1.3-4.4); LYMPH % 42.1 % (27.0-41.0); MEAN CORPUSCULAR HGB 29.6 pg (27.0-31.0); MEAN CORPUSCULAR HGB CONC 34.4 g/dl (33.0-37.0); MEAN PLATELET VOLUME 10.2 fl (9.6-12.3); MONO # 0.6 10*3/uL (0.1-1.0); MONO % 6.1 % (3.0-9.0); NEUT # 4.8 10*3/uL (2.3-7.9); NEUT % 49.1 % (47.0-73.0); PLATELET COUNT AUTOMATED 186 10*3/uL (130-400); RED BLOOD COUNT 4.22 10*6/uL (4.50-5.90); RED CELL DISTRI WIDTH 12.4 % (0-14.5); WHITE BLOOD COUNT 9.8 10*3/uL (4.8-10.8)
[2017-11-16 06:53] LABS: BUN 26 mg/dl (7-24); CHLORIDE 102 mmol/L (98-107); POTASSIUM 3.6 mmol/L (3.5-5.1); SODIUM 137 mmol/L (136-145)
[2017-11-16] MEDS ORDERED: REGLAN5 MG PO (07:58)
[2017-11-16] MEDS ORDERED: LANTUS SOL100 UNIT/1 SQ (07:58)
[2017-11-16] MEDS ORDERED: HUMALOG100 UNIT/2 SC (07:58)
[2017-11-16 08:00] VITALS: BP 120/63
[2017-12-31] MEDS ORDERED: REGLAN5 MG PO (02:04)
[2017-12-31] MEDS ORDERED: LANTUS SOL100 UNIT/1 SQ (02:26)
[2018-01-02] MEDS ORDERED: PERCOCET 10-321 EACH PO (16:46)
== END 2017-11-16 09:59 | disposition home or self-care (01) | DRG 74 ==
LOC: ED 14:43 → EDHOLD 17:53 → 5E 17:53
PROVIDERS: Emergency Medicine; Internal Medicine
DX: E10.43 Type 1 diabetes mellitus with diabetic autonomic (poly)neuropathy (principal); E10.65 Type 1 diabetes mellitus with hyperglycemia; K29.00 Acute gastritis without bleeding; E10.42 Type 1 diabetes mellitus with diabetic polyneuropathy; K31.84 Gastroparesis; F17.210 Nicotine dependence, cigarettes, uncomplicated; Z79.82 Long term (current) use of aspirin; Z79.899 Other long term (current) drug therapy

== ENCOUNTER 2018-05-31 17:42 | Emergency (ER) | payer OTHER ==
[~2018-05-31] VITALS: Ht 180.3 cm; Wt 79.4 kg
[~2018-05-31 17:42] MED LIST changes: +LANTUS SOL100 UNIT/1 SQ; +PERCOCET 10-321 EACH PO
== END 2018-05-31 19:35 | disposition home or self-care (01) ==
LOC: ED 17:42
DX: S63.501A Unspecified sprain of right wrist, initial encounter (principal); S00.83XA Contusion of other part of head, initial encounter; E11.9 Type 2 diabetes mellitus without complications; F17.200 Nicotine dependence, unspecified, uncomplicated; Z79.4 Long term (current) use of insulin; Z79.899 Other long term (current) drug therapy; Z79.82 Long term (current) use of aspirin; W17.89XA Other fall from one level to another, initial encounter; Y93.89 Activity, other specified; Y92.89 Other specified places as the place of occurrence of the external cause; Y99.8 Other external cause status

== ENCOUNTER 2019-02-05 17:53 | Inpatient (IN) | payer OTHER ==
[~2019-02-05] VITALS: Ht 154.9 cm; Wt 88.1 kg
--- NOTE | ~2019-02-05 | PR ---
[place], [place] PROGRESS NOTE [id number] UNIT #: [id number] ROOM: 531 DOCTOR: MECHE ROCK MD BIRTHDATE: [birth year] DOS: SUBJECTIVE: The patient is about the same, does not have any new complaints. OBJECTIVE: VITAL SIGNS: Graphic trend shows a pressure 130/79, pulse of 83, respirations 20, temperature 97.7. LUNGS: Diminished breath sounds. HEART: Regular. ABDOMEN: Obese, soft. EXTREMITIES: 2+ nonpitting edema present. Cellulitis seems to be improving. ASSESSMENT AND PLAN: 1. Type 1 diabetes mellitus, poorly controlled, which is much improved in the hospital. This is most likely from noncompliance to diet at home. 2. Cellulitis of lower legs, improving with IV antibiotics. 3. Swelling of lower legs bilateral. We did do a venous Doppler. This did not show any evidence of any DVT. We will use Mor wrap for the patient this morning. Also, we will check urine for creatinine clearance and protein. Also, echocardiogram and check LV function. 4. Peripheral vascular disease. May benefit from a CT angiogram as an outpatient. 5. Chronic kidney disease from diabetic nephropathy. Advised the patient to be more careful with his diet. 6. Moderate cigarette smoker. Chantix is started. MECHE ROCK MD CM:PNTRANS [phone] MECHE ROCK MD 02/07/19 0959 interface
--- NOTE | ~2019-02-05 | DS ---
[place], [place] DISCHARGE SUMMARY [id number] UN[facility] #: [id number] ROOM: 531 DOCTOR: MECHE ROCK MD BIRTHDATE: [birth year] DOS: 02/08/2019 DIAGNOSES: 1. Swelling of the lower legs with acute kidney injury, possible nephrotic syndrome. Workup is in the process. 2. Peripheral vascular disease, will need further workup as an outpatient. 3. Type 1 diabetes mellitus, poorly controlled. 4. Cellulitis of lower legs, which is resolved. 5. Diabetic peripheral neuropathy with chronic pain, on medications. 6. Mixed hyperlipidemia. 7. Moderate cigarette smoker. 8. Gastroparesis. DISCHARGE MEDICATIONS: Chantix 1 mg twice a day, advised the patient to take the evening dose around 4:00 in the evening, Requip 1 mg at bedtime, Ceftin 250 twice daily for 5 days, gabapentin 800 t.i.d., aspirin 81 mg daily, Zocor 10 daily, Elavil 25 at bedtime, metoclopramide 2.5 b.i.d., Novolin sliding scale, Tylenol 650 q. 6 p.r.n., Lantus 40 units subcutaneous at bedtime. HOSPITAL COURSE: The patient is 33 years old, very well known to us, comes in with swelling and redness of both legs. Please refer to H and P for details. He was diagnosed with cellulitis of the lower legs and admitted. The patient was placed on IV Zosyn. Peripheral arterial Dopplers were done, which showed that he did have abnormal waveforms suggestive of vascular disease. Venous Doppler was negative. The patient is encouraged to quit smoking. He decided he would consider Chantix, which was ordered. The patient has acute kidney injury. His blood sugars were in the 300s when he came in, but has normalized since he was admitted. We have maintained the same insulin dosage here. His lower leg swelling could also be related to nephrotic syndrome, so 24-hour urine collection of protein and creatinine clearance was ordered. Dr. Mcarthur did see the patient. This morning, the patient is overall stable, not having any new problems, encouraged the patient to do a better job, watching his diet and taking his medications regularly. The patient is overall stable. Plan is to discharge him to home today. Follow up as an outpatient. [place], [place] DISCHARGE SUMMARY NAME: MAXINE FULTON UNIT #: [id number] ROOM: 531 DOCTOR: MECHE ROCK MD BIRTHDATE: [birth year] MECHE ROCK MD CM:ALONA [id number] MECHE ROCK MD 02/08/19 1627 interface
--- NOTE | ~2019-02-05 | WRIGHTHP ---
[place], [place] PATIENT HISTORY AND PHYSICAL EXAM [id number] UNIT #: [id number] ROOM: 531 DOCTOR: MECHE ROCK MD BIRTHDATE: [birth year] DOS: 02/05/2019 HISTORY OF PRESENT ILLNESS: This patient is 33 years old. The patient comes in with swelling and redness of both legs and he also injured his left leg at work place and developed redness and increased swelling and discomfort, so finally he decided to come into the Emergency Room. He denies having any chest pains or palpitations, does not have any fever or chills, does not have any abdominal pain, nausea or any emesis. He has type 1 diabetes mellitus, has noticed increasing blood sugars for the last few days. PAST MEDICAL HISTORY: Significant for: 1. Type 1 diabetes mellitus. 2. Multiple hospitalizations for DKA. Two last hospitalizations for dental abscess, sepsis ruled out 6 months ago. 3. History of chronic kidney disease. 4. Diabetic peripheral neuropathy. 5. Mixed hyperlipidemia. 6. Moderate cigarette smoker. 7. Gastroparesis. MEDICATIONS: On admission will be Tylenol 650 q. 6 p.r.n., Elavil 25 at bedtime, aspirin 81 daily, gabapentin 800 t.i.d., lisinopril 2.5 daily, Reglan 2.5 b.i.d., simvastatin 10 mg at bedtime, Lantus 40 units subcutaneous at bedtime, insulin sliding scale. SOCIAL HISTORY: Smoker of about half to 1 pack of cigarettes a day. Denies using any alcohol. He is , has 2 daughters. He is employed. PHYSICAL EXAMINATION: VITAL SIGNS: Blood pressure is 136/74, pulse of 75, respirations 18, temperature 98.2. LUNGS: Diminished breath sounds. Clear sick looking with very swollen face and right eye. LUNGS: Clear. HEART: Regular. ABDOMEN: Obese, soft, nontender. EXTREMITIES: Bilateral pitting edema with redness, more on the left than on the right. The patient says it is much better since admission. ASSESSMENT AND PLAN: 1. Cellulitis of lower legs. The patient is placed on IV antibiotics. 2. Swelling of lower legs. Check venous arterial Doppler. May consider Unna boot. 3. Type 1 diabetes mellitus, insulin dependent, poorly controlled. 4. Chronic kidney disease stage 3. Avoid nephrotoxic medications. Dilaudid given for pain. [place], [place] PATIENT HISTORY AND PHYSICAL EXAM NAME: MAXINE FULTON UNIT #: [id number] ROOM: 53 DOCTOR: MECHE ROCK MD BIRTHDATE: [birth year] MECHE ROCK MD CM:HISPHYS:PATIENT HISTORY AND PHYSICAL EXAMINATION 9 7 MECHE ROCK MD 02/06/1935 interface
--- NOTE | ~2019-02-05 | PR ---
[place], [place] PROGRESS NOTE [id number] UN[facility] #: [id number] ROOM: 531 DOCTOR: MECHE ROCK MD BIRTHDATE: [birth year] DOS: SUBJECTIVE: The patient is not having any new complaint as per the nursing staff. He was belligerent this morning, but did not seem to be in any distress and I walked in and he did not have any complaints. OBJECTIVE: VITAL SIGNS: Blood pressure is 154/90, pulse is 70, respirations 17, temperature 97.9. LUNGS: Clear. HEART: Regular. ABDOMEN: Obese. EXTREMITIES: Still about 2+ pitting edema bilaterally. LABORATORY DATA: None available this morning. Yesterday, white cell count was normal, hemoglobin 11.8. Glucose 151, BUN 17, creatinine 1.67. ASSESSMENT AND PLAN: 1. Type 1 diabetes mellitus, insulin dependent, poorly controlled as an outpatient, controlled here. 2. Cellulitis of the lower legs, resolved. 3. Mild diarrhea, possibly from antibiotic that he has been on. He is on Zosyn. 4. Acute kidney injury. The patient has had normal kidney functions as of a few months ago. This could be from the acute infectious process. Dr. Benavides following. Discussed with Dr. Benavides. After the 24-hour urine collection is done, should be able to go home. 5. Peripheral vascular disease. We will need further workup as an outpatient. Advised the patient to quit smoking and do a better job, watching his diet. MECHE ROCK MD CM:PNTRANS [phone] MECHE ROCK MD 02/09/19 0412 interface
[~2019-02-05 17:53] MED LIST changes: +AUGMENTIN 875-875 MG PO; +Bactroban Oint22 GM T; +NOVOLIN R SC; +TYLENOL325 M1 PO; +ZESTRIL2.5 MG PO
[2019-02-05 17:57] VITALS: BP 134/71
[2019-02-05 18:29] LABS: VENOUS BLOOD GAS O2 SAT 99.5 % (40-85); VENOUS PH 7.413 (7.32-7.43)
[2019-02-05 18:46] LABS: BASO % 0.3 % (0.0-1.0); EOS # 0.2 10*3/uL (0.0-0.4); EOS % 3.7 % (1.0-4.0); HEMATOCRIT 29.8 % (42.0-52.0); HEMOGLOBIN 10.1 g/dl (14.0-18.0); LYMPH # 2.1 10*3/uL (1.3-4.4); LYMPH % 36.1 % (27.0-41.0); MEAN CELL VOLUME 89.5 fl (80.0-94.0); MEAN CORPUSCULAR HGB 30.3 pg (27.0-31.0); MEAN CORPUSCULAR HGB CONC 33.9 g/dl (33.0-37.0); MEAN PLATELET VOLUME 10.2 fl (9.6-12.3); MONO # 0.5 10*3/uL (0.1-1.0); MONO % 7.8 % (3.0-9.0); NEUT # 3.1 10*3/uL (2.3-7.9); NEUT % 51.9 % (47.0-73.0); PLATELET COUNT AUTOMATED 158 10*3/uL (130-400); RED BLOOD COUNT 3.33 10*6/uL (4.50-5.90); RED CELL DISTRI WIDTH 12.9 % (0-14.5); WHITE BLOOD COUNT 5.9 10*3/uL (4.8-10.8)
[2019-02-05 18:47] LABS: ALBUMIN 3.5 gm/dl (3.1-4.5); CREATININE 1.84 mg/dL (0.70-1.30); POTASSIUM 4.8 mmol/L (3.5-5.1); TOTAL PROTEIN 6.4 gm/dL (6.4-8.2)
--- NOTE | 2019-02-05 21:07 | NUR ---
Time: 2109 A 33 year old MALE admitted to 5E under services of DR. SHWETA JC,MECHE. Pt. arrived via stretcher from ER. Chief complaint: ELEVATED BLOOD SUGAR. RAMONA MONTERO
[2019-02-05 21:15] VITALS: BP 122/67
[2019-02-05] MEDS ORDERED: BASAG SOL SC (21:22)
--- NOTE | 2019-02-05 21:24 | NUR ---
MED REC COMPLETED WITH PATIENT ALERT AND ORIENTED TO PERSON PLACE AND THING.
--- NOTE | 2019-02-05 21:51 | NUR ---
ORDERS TAKEN FROM DR ROCK TO CONTINUE HOME MEDICATIONS. ORDER TAKEN FOR BACTROBAN FOR PATIENT'S LEFT LEG, AND TRAMADOL FOR PAIN.
--- NOTE | 2019-02-05 22:25 | NUR ---
PATIENT DECLINED ALL TEN UNITS OF INSULIN. STATES HE WILL GET LOW BLOOD SUGAR IF HE TOOK ALL TEN. ONLY WANTED 5.
--- NOTE | 2019-02-05 22:25 | NUR ---
MEDICATED WITH PRN ULTRAM FOR C/O PAIN IN THE BILATERAL LOWER LEGS. WILL MONITOR
--- NOTE | 2019-02-06 00:28 | NUR ---
PATIENT REFUSING MIDNIGHT VITALS
--- NOTE | 2019-02-06 02:34 | NUR ---
BLOOD SUGAR CHECK 159
[2019-02-06 04:00] VITALS: BP 136/74
--- NOTE | 2019-02-06 05:53 | NUR ---
MAXINE FULTON [id number] Please refer to the physician's history and physical for past medical history, comorbid conditions, and allergies. Diagnosis: ACUTE KIDNEY INJURY WOUND INFECTION HYPERGLYCEMI Leighton Score: 20,LOW OR NO RISK WOUND DESCRIPTIONS: Wound Number: 1 Location of the wound: left lower extremity Thickness: Partial Size: 0.8cm x 1.1cm x 0.1cm Tunneling: none Undermining: none Sinus Tract: none Presence of Exudate: none Amount: None Color: Red Odor: None Periwound Skin Appearance: edema Wound edges: approximated Pain (associated with wound): none at time of assessment How does patient state this happened? pt stated this happened about a week ago at work he hit it off of a gate. Patient stated his legs are more swollen than usual Surface the patient is resting on: Isoflex SKIN PREVENTION RECOMMENDATION: 1. Pressure redistribution support surface as appropriate 2. Elevate heels 3. Remove boots/TEDS every shift and reapply 4. Head of bed 30 degrees as tolerated 5. Assess nutrition and hydration 6. Manage moisture 7. Avoid the use of containment devices while in bed 8. Use absorptive products on surfaces limit layers of linens on bed 9. Turn and reposition every 1-2 hours in bed and every 1 hour in chair as tolerated 10. Weight shifts every 15 minutes while up in chair 11. Offloading with pillows or device to keep heels elevated off bed 12. Monitor skin at least every shift 13. Inspect under medical devices twice a day WOUND TREATMENT RECOMMENDATIONS: Continue bactroban as order per provider. Patient stated that he will care for this area at home once he is discharged like he done previously.
--- NOTE | 2019-02-06 07:10 | NUR ---
ARRIVED ON SHIFT, PER PATIENT REQUEST DID NOT AWAKEN FOR SHIFT REPORT, REPORT RECEIVED.
--- NOTE | 2019-02-06 07:58 | NUR ---
Shift chart check completed.
--- NOTE | 2019-02-06 10:02 | NUR ---
PATIENT C/O BLE PAIN 12/29, DESCRIBES STABBING, MEDICATED WITH DILAUDID ORDERED FOR PAIN
--- NOTE | 2019-02-06 11:02 | NUR ---
GOOD EFFECT FROM DILAUDID GIVEN EVIDENCED BY PATIENT RESTING QUIETLY WITH EYES CLOSED, NO APPARENT DISTRESS NOTED.
[2019-02-06 12:00] VITALS: BP 142/80
--- NOTE | 2019-02-06 14:30 | NUR ---
Girl Friday in to talk to patient. Patient states lives at home with his and children. There are 0 steps in the home. Physician: Dr. Jailene David [facility] Home health services: none Patient's level of ADLs: INDEPENDENT Patient has working utilities: yes DME: none Follow-up physician's appointment after d/c: he prefers to make his own follow up appt after discharge Does patient want to access PORTAL?: no Discharge plan discussed with patient. He lives at home with his and children. He is independent in his ADLs and ambulation. Discussed home health care services and he denies any home needs at this time. When medically stable he will be discharged to home. will transport on discharge. MOHSEN [employer]EL
[2019-02-06 16:00] VITALS: BP 139/85
--- NOTE | 2019-02-06 19:56 | NUR ---
PATIENT C/O LEG AND TEETH PAIN, HE IS RUBBING LEGS TO SEE IF IT WILL HELP, BL LOWER EXTREMITIES ARE EDEMITIS WITH 3 PLUS PITTING EDEMA FROM TOES TO ABOVE KNEES, MEDICATED WITH DILAUDID ORDERED.
[2019-02-06 20:00] VITALS: BP 150/80
--- NOTE | 2019-02-06 20:15 | NUR ---
CALL PLACED TO DR. PATEL FOR PATIENTS ELEVATED BP 150/88, AND INCREASING LE EDEMA 3 PLUS TO ABOVE KNEES, ORDER RECEIVED TO D/C FLUIDS, AND CONSULT DR. ACOSTA.
--- NOTE | 2019-02-06 20:32 | NUR ---
CALL PLACED TO DR. ACOSTA TO ADVISE OF CONSULT ORDER, SHE VERSED SHE WILL SEE TOMORROW.
--- NOTE | 2019-02-06 20:54 | NUR ---
PATIENT REPORTS DILAUDID WAS EFFECTIVE FOR HIS LEG PAIN, STATES IT STILL IS PAINFUL BUT BETTER THAN IT WAS.
[2019-02-07] VITALS: BP 162/98
--- NOTE | 2019-02-07 06:18 | NUR ---
PATIENT MEDICATED WITH DILAUDID FOR COMPLAINTS OF LEFT LEG PAIN. WILL CONTINUE TO MONITOR.
[2019-02-07 08:00] VITALS: BP 130/79
--- NOTE | 2019-02-07 08:10 | NUR ---
UNABLE TO FIND PT ON 5E. PT FOUND BY SECURITY WANDERING. DENIES GOING OUT TO SMOKE BUT BECAME AGITATED WHEN REMINDED THAT HE CAN NOT LEAVE FLOOR OR GO OUT TO SMOKE. PT STATED "IM TIRED OF BEING IN THIS LITTLE FUING ROOM AND HAVING NOTHING DONE" AND "IM NOT A CHILD I CAN DO WHAT I WANT". DR ROCK ON UNIT AT THIS TIME AND WHEN IN AN SPOKE WITH PT.
--- NOTE | 2019-02-07 09:41 | NUR ---
WRAPPED PT'S BILATERAL LOWER LEGS WITH COLUMBA WRAPS PER DR SHWETA PETTY.
--- NOTE | 2019-02-07 11:00 | NUR ---
Senior Quantity Surveyor in to see patient. No new needs or request at this time. He denies any home needs. Per the multidisciplinary discharge planning meeting Dr. Mondragon is a consult for acute renal failure and on IV Zosyn for cellulitis. Discharge time undecided. When medically stable he will be discharged to home.
--- NOTE | 2019-02-07 11:25 | NUR ---
NEW ORDER FOR LOMOTIL REC'D FOR DIARRHEA BY . SEE MAR.
[2019-02-07 12:00] VITALS: BP 147/88
--- NOTE | 2019-02-07 13:27 | NUR ---
PRN LOMOTIL AND ULTRAM GIVEN FOR C/O BILAT LEG PAIN 7/10 AND DIARRHEA. CALL LIGHT WITHIN REACH. WILL MONITOR FOR EFFECTIVENESS.
[2019-02-07 13:28] LABS: BUN 17 mg/dl (7-24); CHLORIDE 106 mmol/L (98-107); CREATININE 1.59 mg/dL (0.70-1.30); POTASSIUM 4.5 mmol/L (3.5-5.1); SODIUM 139 mmol/L (136-145)
--- NOTE | 2019-02-07 14:06 | NUR ---
PER PT, ULTRAM WAS EFFECTIVE. PAIN NOW RATED 3/10. CALL LIGHT IN REACH.
--- NOTE | 2019-02-07 14:37 | NUR ---
Nutritional Support Services Note: Appetite is good for meals. He receives an 1800cal diabetic diet as ordered. Pt is noncompliant to diet at home. Left leg wound noted. Attempting to discuss diet with pt. Pt is not interested at this time. Encouraged healhty eating, three meals daily and a night snack. Discussed wound healing. Encouraged better compliance to diet. No other Nutrition intervention needed at this time. Will follow. Pt will receive a high protein night snack. Jenny Vidal Rdn Ld
[2019-02-07 16:00] VITALS: BP 138/69
--- NOTE | 2019-02-07 16:45 | NUR ---
EDUCATED ON PROPER DIET AND MAINTAINING BSG WITHIN NORMAL LIMITS. ANSWERED PTS QUESTIONS. MEDICATED FOR BILAT PAIN WITH DILAUDID TO LEGS 12/29. CALL LIGHT IN REACH. WILL MONITOR.
--- NOTE | 2019-02-07 17:36 | NUR ---
SLEEPING, NO SXS OF DISTRESS NOTED. RESPERS EASY AND REGULAR. DILAUDID SEEMS TO BE EFFECTIVE FOR LEG PAIN. CALL LIGHT IN REACH. ISOLATION PRECAUTIONS MAINTAINED
[2019-02-07 20:00] VITALS: BP 153/87
--- NOTE | 2019-02-07 22:05 | NUR ---
CALLED FOR RESTLESS LEGS AND BILAT LEG PAIN. NEW ORDER FOR KELLY CLOUD'Saqib. SEE JUL.
--- NOTE | 2019-02-07 23:00 | NUR ---
ASSUMED CARE FOR THIS PT AT THIS TIME. PT RESTING QUIETLY IN BED W/EYES CLOSED. CALL LIGHT IN REACH.
[2019-02-08] VITALS: BP 149/78
--- NOTE | 2019-02-08 05:50 | NUR ---
PT MEDICATED W/ULTRAM FOR C/O LLE PAIN. DRSG DRY AND INTACT.
--- NOTE | 2019-02-08 06:00 | NUR ---
PT REFUSING INSULIN COVERAGE AND PO REGLAN. PT STATES IT GIVES HIM DIARRHEA. 24 URINE STILL IN PROCESS.
[2019-02-08 06:51] LABS: BASO % 0.1 % (0.0-1.0); EOS # 0.3 10*3/uL (0.0-0.4); EOS % 3.8 % (1.0-4.0); HEMATOCRIT 34.5 % (42.0-52.0); HEMOGLOBIN 11.8 g/dl (14.0-18.0); LYMPH # 2.1 10*3/uL (1.3-4.4); MEAN CELL VOLUME 87.6 fl (80.0-94.0); MEAN CORPUSCULAR HGB 29.9 pg (27.0-31.0); MEAN CORPUSCULAR HGB CONC 34.2 g/dl (33.0-37.0); MEAN PLATELET VOLUME 10.6 fl (9.6-12.3); MONO # 0.6 10*3/uL (0.1-1.0); MONO % 7.7 % (3.0-9.0); NEUT # 4.3 10*3/uL (2.3-7.9); NEUT % 59.1 % (47.0-73.0); PLATELET COUNT AUTOMATED 177 10*3/uL (130-400); RED BLOOD COUNT 3.94 10*6/uL (4.50-5.90); RED CELL DISTRI WIDTH 12.6 % (0-14.5); WHITE BLOOD COUNT 7.3 10*3/uL (4.8-10.8)
[2019-02-08 07:16] LABS: CREATININE 1.67 mg/dL (0.70-1.30); POTASSIUM 4.7 mmol/L (3.5-5.1)
[2019-02-08 08:00] VITALS: BP 154/91
[2019-02-08] MEDS ORDERED: ROPINIROLE HYDRO1 MG PO (08:21)
[2019-02-08] MEDS ORDERED: CEFUROXIME AXE250 MG PO (08:21)
[2019-02-08] MEDS ORDERED: CHANTIX1 M1 PO (08:21)
--- NOTE | 2019-02-08 10:28 | NUR ---
PT MEDICATED WITH DILAUDID 0.25MG IV AT HIS REQUEST FOR BILATERAL LEG PAIN.
[2019-02-08 10:56] LABS: BILIRUBIN NEGATIVE (NEGATIVE); BLOOD 3+ (NEGATIVE); CLARITY CLEAR (CLEAR); COLOR YELLOW (YELLOW); GLUCOSE 2+ (NEGATIVE); KETONE NEGATIVE (NEGATIVE); LEUKO ESTERASE NEGATIVE (NEGATIVE); NITRITE NEGATIVE (NEGATIVE); PH 6.5 (5.0-9.0); SPECIFIC GRAVITY 1.015 (1.005-1.030); UROBILINOGEN 0.2 E.U./dl (0.2-1.0)
[2019-02-08 11:15] LABS: RBC 51-100 rbc/hpf (0-2)
[2019-02-08] MEDS ORDERED: PRINIVIL10 MG PO (13:00)
--- NOTE | 2019-02-08 13:44 | NUR ---
PT HAS SMALL WOUND TO LEG. PT'S IS HERE NOW AND HE IS READY TO LEAVE SO DID NOT WANT DRESSING THAT WAS PUT ON THIS AM TO BE REMOVED FOR ANY DISCHARGE PICTURES.
--- NOTE | 2019-02-08 13:50 | NUR ---
PT DISCHARGED AT THIS TIME WITH TO HOME.
--- NOTE | 2019-02-08 13:50 | NUR ---
Discharge instructions reviewed with patient/family. Patient receptive and verbalizes understanding. Follow-up care arranged. Written instructions given to patient/family. JOAO ARIZMENDI
[2019-02-12 16:07] LABS: ALBUMIN, URINE RANDOM 75.1 % (.); ALPHA-1-GLOBULIN, URINE 6.3 % (.); ALPHA-2-GLOBULIN, URINE 7.4 % (.); GAMMA GLOBULIN, URINE 2.5 % (.); M-SPIKE % Not Observed % (Not Observed); PROTEIN,TOTAL - URINE RANDOM 31.1 mg/dL (Not Estab.)
== END 2019-02-08 13:56 | disposition home or self-care (01) | DRG 683 ==
LOC: ED 17:53 → 5E 19:13 → EDHOLD 19:13 → 5E 21:00
PROVIDERS: Internal Medicine Nephrology; Physician Assistant; ADMIT Internal Medicine
DX: N17.9 Acute kidney failure, unspecified (principal); L03.116 Cellulitis of left lower limb; L03.115 Cellulitis of right lower limb; N04.9 Nephrotic syndrome with unspecified morphologic changes; E10.65 Type 1 diabetes mellitus with hyperglycemia; N18.3 Chronic kidney disease, stage 3 (moderate); L08.9 Local infection of the skin and subcutaneous tissue, unspecified; E10.22 Type 1 diabetes mellitus with diabetic chronic kidney disease; E10.51 Type 1 diabetes mellitus with diabetic peripheral angiopathy without gangrene; E78.2 Mixed hyperlipidemia; F17.210 Nicotine dependence, cigarettes, uncomplicated; E10.43 Type 1 diabetes mellitus with diabetic autonomic (poly)neuropathy; K31.84 Gastroparesis; Z79.4 Long term (current) use of insulin; Z82.5 Family history of asthma and other chronic lower respiratory diseases; Z83.3 Family history of diabetes mellitus; Z82.49 Family history of ischemic heart disease and other diseases of the circulatory system

== ENCOUNTER 2019-02-20 08:17 | Emergency (ER) | payer OTHER ==
[~2019-02-20] VITALS: Ht 180.3 cm; Wt 81.6 kg
[~2019-02-20 08:17] MED LIST changes: +BASAG SOL SC; +CEFUROXIME AXE250 MG PO; +CHANTIX1 M1 PO; +PRINIVIL10 MG PO; +ROPINIROLE HYDRO1 MG PO
[2019-02-20 08:45] LABS: BASO % 0.2 % (0.0-1.0); EOS # 0.2 10*3/uL (0.0-0.4); EOS % 1.8 % (1.0-4.0); HEMATOCRIT 37.5 % (42.0-52.0); HEMOGLOBIN 13.3 g/dl (14.0-18.0); LYMPH # 2.6 10*3/uL (1.3-4.4); LYMPH % 24.3 % (27.0-41.0); MEAN CORPUSCULAR HGB 30.2 pg (27.0-31.0); MEAN CORPUSCULAR HGB CONC 35.5 g/dl (33.0-37.0); MEAN PLATELET VOLUME 9.9 fl (9.6-12.3); MONO # 0.9 10*3/uL (0.1-1.0); MONO % 8.1 % (3.0-9.0); NEUT % 65.2 % (47.0-73.0); PLATELET COUNT AUTOMATED 230 10*3/uL (130-400); RED BLOOD COUNT 4.41 10*6/uL (4.50-5.90); RED CELL DISTRI WIDTH 12.1 % (0-14.5); WHITE BLOOD COUNT 10.7 10*3/uL (4.8-10.8)
[2019-02-20 08:56] LABS: ACT PARTIAL THROMBO TIME 25.4 SECONDS (20.0-32.1)
[2019-02-20 09:08] LABS: ALBUMIN 3.8 gm/dl (3.1-4.5); ALKALINE PHOSPHATASE 92 U/L (45-117); BUN 45 mg/dl (7-24); CHLORIDE 97 mmol/L (98-107); CREATININE 1.91 mg/dL (0.70-1.30); POTASSIUM 3.7 mmol/L (3.5-5.1); SGOT/AST 9 IU/L (3-35); SGPT/ALT 20 U/L (12-78); SODIUM 134 mmol/L (136-145); TOTAL PROTEIN 7.1 gm/dL (6.4-8.2)
[2019-02-20 09:15] LABS: TROPONIN I < 0.015 ng/ml (<0.045)
[2019-02-20 12:31] LABS: BILIRUBIN NEGATIVE (NEGATIVE); BLOOD 2+ (NEGATIVE); CLARITY SL CLOUDY (CLEAR); COLOR YELLOW (YELLOW); GLUCOSE 3+ (NEGATIVE); KETONE NEGATIVE (NEGATIVE); LEUKO ESTERASE NEGATIVE (NEGATIVE); NITRITE NEGATIVE (NEGATIVE); PH 5.5 (5.0-9.0); SPECIFIC GRAVITY 1.025 (1.005-1.030); UROBILINOGEN 0.2 E.U./dl (0.2-1.0)
[2019-02-20 12:46] LABS: EPITHELIAL CELLS 0-2; RBC 16-20 rbc/hpf (0-2); WBC 0-2 wbc/hpf (0-5)
== END 2019-02-20 13:29 | disposition home or self-care (01) ==
LOC: ED 08:17
PROVIDERS: Emergency Medicine
DX: G43.A0 Cyclical vomiting, in migraine, not intractable (principal); G43.909 Migraine, unspecified, not intractable, without status migrainosus; N17.9 Acute kidney failure, unspecified; F17.200 Nicotine dependence, unspecified, uncomplicated; F12.10 Cannabis abuse, uncomplicated; F14.10 Cocaine abuse, uncomplicated; Z90.89 Acquired absence of other organs; E10.40 Type 1 diabetes mellitus with diabetic neuropathy, unspecified; Z79.899 Other long term (current) drug therapy; Z79.82 Long term (current) use of aspirin; Z79.4 Long term (current) use of insulin

== ENCOUNTER 2019-04-25 11:48 | Inpatient (IN) | payer OTHER ==
[~2019-04-25] VITALS: Ht 180.3 cm; Wt 88.6 kg
[2019-04-25 11:58] VITALS: BP 175/89
[2019-04-25 12:18] LABS: BASO % 0.3 % (0.0-1.0); EOS # 0.2 10*3/uL (0.0-0.4); EOS % 2.7 % (1.0-4.0); HEMATOCRIT 35.9 % (42.0-52.0); HEMOGLOBIN 12.3 g/dl (14.0-18.0); LYMPH % 33.7 % (27.0-41.0); MEAN CELL VOLUME 87.1 fl (80.0-94.0); MEAN CORPUSCULAR HGB 29.9 pg (27.0-31.0); MEAN CORPUSCULAR HGB CONC 34.3 g/dl (33.0-37.0); MEAN PLATELET VOLUME 9.9 fl (9.6-12.3); MONO # 0.5 10*3/uL (0.1-1.0); MONO % 7.5 % (3.0-9.0); NEUT # 3.3 10*3/uL (2.3-7.9); NEUT % 55.3 % (47.0-73.0); PLATELET COUNT AUTOMATED 175 10*3/uL (130-400); RED BLOOD COUNT 4.12 10*6/uL (4.50-5.90); RED CELL DISTRI WIDTH 13.1 % (0-14.5)
[2019-04-25 12:26] LABS: ACT PARTIAL THROMBO TIME 24.1 SECONDS (20.0-32.1)
[2019-04-25 12:32] LABS: ALBUMIN 3.4 gm/dl (3.1-4.5); ALKALINE PHOSPHATASE 79 U/L (45-117); BUN 20 mg/dl (7-24); CHLORIDE 109 mmol/L (98-107); LIPASE 37 U/L (73-393); POTASSIUM 3.8 mmol/L (3.5-5.1); SGOT/AST 29 IU/L (3-35); SGPT/ALT 17 U/L (12-78); SODIUM 142 mmol/L (136-145); TOTAL PROTEIN 6.4 gm/dL (6.4-8.2)
[2019-04-25 12:34] LABS: BILIRUBIN NEGATIVE (NEGATIVE); BLOOD 3+ (NEGATIVE); CLARITY SL CLOUDY (CLEAR); COLOR YELLOW (YELLOW); GLUCOSE NEGATIVE (NEGATIVE); KETONE NEGATIVE (NEGATIVE); LEUKO ESTERASE NEGATIVE (NEGATIVE); NITRITE NEGATIVE (NEGATIVE); PH 6.5 (5.0-9.0); SPECIFIC GRAVITY 1.025 (1.005-1.030); UROBILINOGEN 0.2 E.U./dl (0.2-1.0)
[2019-04-25 12:36] LABS: TROPONIN I < 0.015 ng/ml (<0.045)
[2019-04-25 12:46] LABS: URINE AMPHETAMINES < 1000 (1000ng/ml); URINE BARBITURATES < 200 (200ng/ml); URINE BENZODIAZEPINES < 200 (200ng/ml); URINE CANNABINOIDS (THC) > 50 (50ng/ml); URINE COCAINE < 300 (300ng/ml); URINE METHADONE < 300 (300ng/ml); URINE OPIATES < 300 (300ng/ml)
[2019-04-25 12:48] LABS: RBC TNTC rbc/hpf (0-2)
[2019-04-25 12:49] LABS: BACTERIA 1+
[2019-04-25 12:50] LABS: URINE PHENCYCLIDINE < 25 (25ng/ml)
[2019-04-25 15:34] VITALS: BP 193/80
[2019-04-25 16:00] VITALS: BP 164/100
[2019-04-25 20:00] VITALS: BP 182/118
[2019-04-25 22:30] VITALS: BP 182/90
[2019-04-26] VITALS: BP 182/96
[2019-04-26 01:15] VITALS: BP 188/111
[2019-04-26 02:46] VITALS: BP 138/74
[2019-04-26 12:00] VITALS: BP 166/92
[2019-04-26 16:00] VITALS: BP 182/102
[2019-04-26 20:00] VITALS: BP 167/93
[2019-04-27] VITALS: BP 178/102
[2019-04-27 01:14] VITALS: BP 176/96
[2019-04-27 07:09] LABS: BASO % 0.3 % (0.0-1.0); EOS # 0.2 10*3/uL (0.0-0.4); EOS % 2.1 % (1.0-4.0); HEMATOCRIT 31.2 % (42.0-52.0); HEMOGLOBIN 10.8 g/dl (14.0-18.0); LYMPH # 2.2 10*3/uL (1.3-4.4); MEAN CELL VOLUME 86.7 fl (80.0-94.0); MEAN CORPUSCULAR HGB CONC 34.6 g/dl (33.0-37.0); MEAN PLATELET VOLUME 10.7 fl (9.6-12.3); MONO # 0.7 10*3/uL (0.1-1.0); MONO % 8.6 % (3.0-9.0); NEUT % 61.9 % (47.0-73.0); PLATELET COUNT AUTOMATED 167 10*3/uL (130-400)
[2019-04-27 07:37] LABS: BUN 23 mg/dl (7-24); CHLORIDE 111 mmol/L (98-107); POTASSIUM 4.6 mmol/L (3.5-5.1); SODIUM 141 mmol/L (136-145)
[2019-04-27 07:38] LABS: CREATININE 1.58 mg/dL (0.70-1.30)
[2019-04-27 08:00] VITALS: BP 172/108
[2019-04-27 12:00] VITALS: BP 186/114
== END 2019-04-27 15:33 | disposition left against medical advice (07) | DRG 420 ==
LOC: ED 11:48 → EDHOLD 14:27 → 4E 14:27
PROVIDERS: Emergency Medicine; Internal Medicine; ADMIT Internal Medicine
DX: E10.649 Type 1 diabetes mellitus with hypoglycemia without coma (principal); R56.9 Unspecified convulsions; F11.23 Opioid dependence with withdrawal; F12.10 Cannabis abuse, uncomplicated; E83.51 Hypocalcemia; F17.210 Nicotine dependence, cigarettes, uncomplicated; N17.0 Acute kidney failure with tubular necrosis; E87.8 Other disorders of electrolyte and fluid balance, not elsewhere classified; E10.40 Type 1 diabetes mellitus with diabetic neuropathy, unspecified; E78.2 Mixed hyperlipidemia; E10.51 Type 1 diabetes mellitus with diabetic peripheral angiopathy without gangrene; F10.239 Alcohol dependence with withdrawal, unspecified; N18.9 Chronic kidney disease, unspecified; I12.9 Hypertensive chronic kidney disease with stage 1 through stage 4 chronic kidney disease, or unspecified chronic kidney disease; E10.22 Type 1 diabetes mellitus with diabetic chronic kidney disease; Z83.3 Family history of diabetes mellitus; Z82.49 Family history of ischemic heart disease and other diseases of the circulatory system; Z82.5 Family history of asthma and other chronic lower respiratory diseases; Z79.82 Long term (current) use of aspirin; Z71.6 Tobacco abuse counseling; Z79.4 Long term (current) use of insulin

== ENCOUNTER 2020-02-11 07:18 | Emergency (ER) | payer OTHER ==
[~2020-02-11] VITALS: Ht 180.3 cm; Wt 83.5 kg
[~2020-02-11 07:18] MED LIST changes: +'CLONIDINE0.1 MG PO; +Humalog SQ; +LISINOPRIL20 MG PO; +Lantus SC; +METOPROLOL SUCC50 M1 PO; +SUBOXONE 8 MG-1 EACH SL; +VITAMIN D3125 MCG PO
[2020-02-11 07:43] LABS: BASO % 0.4 % (0.0-1.0); EOS # 0.2 10*3/uL (0.0-0.4); EOS % 2.4 % (1.0-4.0); HEMATOCRIT 37.3 % (42.0-52.0); LYMPH # 3.9 10*3/uL (1.3-4.4); MEAN CELL VOLUME 90.1 fl (80.0-94.0); MEAN CORPUSCULAR HGB 29.5 pg (27.0-31.0); MEAN CORPUSCULAR HGB CONC 32.7 g/dl (33.0-37.0); MEAN PLATELET VOLUME 10.7 fl (9.6-12.3); MONO # 0.5 10*3/uL (0.1-1.0); MONO % 5.7 % (3.0-9.0); NEUT # 3.7 10*3/uL (2.3-7.9); PLATELET COUNT AUTOMATED 230 10*3/uL (130-400); RED BLOOD COUNT 4.14 10*6/uL (4.50-5.90); RED CELL DISTRI WIDTH 12.5 % (0-14.5); WHITE BLOOD COUNT 8.4 10*3/uL (4.8-10.8)
[2020-02-11 07:59] LABS: ALBUMIN 3.8 gm/dl (3.1-4.5); CREATININE 1.68 mg/dL (0.70-1.30); POTASSIUM 3.5 mmol/L (3.5-5.1); TOTAL PROTEIN 7.3 gm/dL (6.4-8.2)
== END 2020-02-11 16:39 | disposition home or self-care (01) ==
LOC: ED 07:18
PROVIDERS: Emergency Medicine
DX: E11.65 Type 2 diabetes mellitus with hyperglycemia (principal); I10 Essential (primary) hypertension; E78.00 Pure hypercholesterolemia, unspecified; F17.200 Nicotine dependence, unspecified, uncomplicated; Z79.899 Other long term (current) drug therapy

== ENCOUNTER 2020-03-03 08:46 | Emergency (ER) | payer OTHER ==
[~2020-03-03] VITALS: Ht 180.3 cm; Wt 83.9 kg
== END 2020-03-03 10:58 | disposition home or self-care (01) ==
LOC: ED 08:46
DX: S63.501A Unspecified sprain of right wrist, initial encounter (principal); S00.81XA Abrasion of other part of head, initial encounter; Z79.899 Other long term (current) drug therapy; I10 Essential (primary) hypertension; V89.2XXA Person injured in unspecified motor-vehicle accident, traffic, initial encounter; Y93.89 Activity, other specified; Y92.89 Other specified places as the place of occurrence of the external cause; Y99.8 Other external cause status

== ENCOUNTER 2020-03-10 18:04 | Inpatient (IN) | payer OTHER ==
[~2020-03-10] VITALS: Ht 180.3 cm; Wt 88.9 kg
[2020-03-10 18:15] VITALS: BP 190/90
[2020-03-10 19:51] LABS: BASO % 0.4 % (0.0-1.0); EOS # 0.1 10*3/uL (0.0-0.4); EOS % 2.4 % (1.0-4.0); HEMATOCRIT 31.7 % (42.0-52.0); LYMPH # 1.5 10*3/uL (1.3-4.4); LYMPH % 27.5 % (27.0-41.0); MEAN CELL VOLUME 86.1 fl (80.0-94.0); MEAN CORPUSCULAR HGB 29.1 pg (27.0-31.0); MEAN CORPUSCULAR HGB CONC 33.8 g/dl (33.0-37.0); MEAN PLATELET VOLUME 10.3 fl (9.6-12.3); MONO # 0.4 10*3/uL (0.1-1.0); MONO % 7.7 % (3.0-9.0); NEUT # 3.4 10*3/uL (2.3-7.9); NEUT % 61.8 % (47.0-73.0); PLATELET COUNT AUTOMATED 179 10*3/uL (130-400); RED BLOOD COUNT 3.68 10*6/uL (4.50-5.90); RED CELL DISTRI WIDTH 12.4 % (0-14.5); WHITE BLOOD COUNT 5.5 10*3/uL (4.8-10.8)
[2020-03-10 20:03] LABS: ACT PARTIAL THROMBO TIME 24.5 SECONDS (20.0-32.1)
[2020-03-10 20:12] LABS: ALBUMIN 3.4 gm/dl (3.1-4.5); ALKALINE PHOSPHATASE 160 U/L (45-117); BUN 23 mg/dl (7-24); CHLORIDE 96 mmol/L (98-107); CREATININE 1.48 mg/dL (0.70-1.30); POTASSIUM 4.7 mmol/L (3.5-5.1); SGOT/AST 17 IU/L (3-35); SGPT/ALT 23 U/L (12-78); SODIUM 130 mmol/L (136-145); TOTAL PROTEIN 6.9 gm/dL (6.4-8.2)
[2020-03-10 20:14] LABS: TROPONIN I < 0.015 ng/ml (<0.045)
[2020-03-10 20:33] VITALS: BP 168/90
--- NOTE | 2020-03-10 20:37 | NUR ---
PATIENT RESTING AT THIS TIME. PLAYING ON HIS PHONE. CALL LIGHT IN REACH. WILL CONTINUE TO MONITOR PT.
[2020-03-10] MEDS ORDERED: LANTUS SOL100 UNIT/1 SC (20:41)
--- NOTE | 2020-03-10 20:52 | NUR ---
PATIENT STATES THAT HE HAS HAD RELIEF OF PAIN AFTER MEDICATION. PT ON PULSE OX AT 99% ON ROOM AIR. CALL LIGHT IN REACH. WILL CONTINUE TO MONITOR PT.
[2020-03-10 21:32] VITALS: BP 186/102
[2020-03-11] VITALS: BP 139/85
[2020-03-11 01:20] VITALS: BP 159/88
[2020-03-11 08:00] VITALS: BP 167/91
--- NOTE | 2020-03-11 09:00 | NUR ---
International Logistics Analyst in to talk to patient. Patient states lives at home with his and children. There are 0 steps in the home. Physician: Dr. Jailene David [facility] Home health services: none Patient's level of ADLs: INDEPENDENT Patient has working utilities: yes DME: none Follow-up physician's appointment after d/c: he prefers to make his own follow up appt after discharge Does patient want to access PORTAL?: no Discharge plan discussed with patient. He lives at home with his and children. He is independent in his ADLs and ambulation. Discussed home health care services and he declines. CM will continue to follow for any discharge planning needs. When medically stable he will be discharged to home. He states his will transportation on discharge. [employer]
--- NOTE | 2020-03-11 11:23 | NUR ---
PATIENT EDELMIRA UNIT FOR 10OO BG CHECK.
[2020-03-11 12:00] VITALS: BP 162/80
--- NOTE | 2020-03-11 14:54 | NUR ---
PATIENT OFF UNIT WILL PERFORM BLOOD GLUCOSE WHEN HE RETURNS
[2020-03-11 16:07] VITALS: BP 146/89
--- NOTE | 2020-03-11 16:56 | NUR ---
PATIENT BEDSIDE BLOOD GLUCOSE WAS 407, ON REPEA IT WAS 454. TREATED HIM WITH HIGHEST COVERAGE PER SLIDING SCALE. PATINT REFUSED PRMEAL DOSE. HE STATED THAT HE WOULD NOT TAKE MORE DUE TO THE IRRADIC NATURE OF HIS UNCONTROLLED DIAETES.
--- NOTE | 2020-03-11 19:33 | NUR ---
PATIENT EATING DURING LAST BSGC. HE REFUSES COVERAGE ORDERRE. STATES HE WOULD BECOME HYPOGLYCEMIS IF HE TAKES ADDITIONL PRE MEAL COVERAGE.
[2020-03-11 20:00] VITALS: BP 166/97
--- NOTE | 2020-03-11 20:00 | NUR ---
ASSESSMENT COMPLETE. NO C/O VOICED. PLEASANT/COOPERATIVE. TOOK MEDS WITHOUT DIFFICULTY. REFUSED COVERAGE D/T RECIEVING LANTUS. STATES HE DROPS LOW WHEN TAKING IT. 1:1 GIVEN W/O EFFECT. CALL LIGHT IN REACH
[2020-03-12] VITALS: BP 168/95
--- NOTE | 2020-03-12 | NUR ---
BGM 336. ADMINISTERED 10 UNITS PER ORDER.
--- NOTE | 2020-03-12 01:39 | NUR ---
IV started right arm with #22 protective cath after attempts. Site prepped with Chloroprep. Sterile dressing applied. Patient tolerated procedure well. ENA WAYNE
--- NOTE | 2020-03-12 02:17 | NUR ---
LT HAND EDEMADOUS AND PAINFUL PER PT. IV REMOVED. SEVERAL NURSES ATTEMPTED INSERT NEW IV. FINALLY ABLE TO INSERT 22G IN RT ARM WITH ULTRASOUND.
[2020-03-12 08:00] VITALS: BP 135/80
--- NOTE | 2020-03-12 08:00 | NUR ---
IN TO ROOM. PATIENT AWAKE, ALERT AND ORIENTED. NO STATED COMPLAINTS AT THIS TIME. RESPIRATIONS ARE EASY AND REGULAR ON ROOM AIR. PT ABLE TO REPOSITION SELF AND IS ENCOURAGED TO DO SO. BED IN LOWEST LOCKED POSITION AND CALL LIGHT WITHIN REACH. WILL CONTINUE TO MONITOR.
[2020-03-12 08:41] LABS: BASO % 0.1 % (0.0-1.0); EOS # 0.3 10*3/uL (0.0-0.4); HEMATOCRIT 32.9 % (42.0-52.0); LYMPH # 2.1 10*3/uL (1.3-4.4); LYMPH % 30.6 % (27.0-41.0); MEAN CELL VOLUME 87.5 fl (80.0-94.0); MEAN CORPUSCULAR HGB CONC 33.1 g/dl (33.0-37.0); MEAN PLATELET VOLUME 10.1 fl (9.6-12.3); MONO # 0.7 10*3/uL (0.1-1.0); MONO % 10.1 % (3.0-9.0); NEUT # 3.7 10*3/uL (2.3-7.9); NEUT % 54.9 % (47.0-73.0); PLATELET COUNT AUTOMATED 211 10*3/uL (130-400); RED BLOOD COUNT 3.76 10*6/uL (4.50-5.90); RED CELL DISTRI WIDTH 12.8 % (0-14.5); WHITE BLOOD COUNT 6.8 10*3/uL (4.8-10.8)
--- NOTE | 2020-03-12 09:00 | NUR ---
CM in to see patient. No new needs or request at this time. Discussed home health care services and he declines. CM will continue to follow for any discharge planning needs. When medically stable he will be discharged to home.
[2020-03-12 09:07] LABS: BUN 15 mg/dl (7-24); CHLORIDE 107 mmol/L (98-107); CREATININE 1.32 mg/dL (0.70-1.30); POTASSIUM 3.8 mmol/L (3.5-5.1); SODIUM 138 mmol/L (136-145)
--- NOTE | 2020-03-12 09:30 | NUR ---
EDUCATION PROVIDED ON MANAGEMENT OF DM, HYPERTENSION AND WOUNDS. PT RESPONSIVE. NO STATED COMPLAINTS. DENIES PAIN. RESPIRATIONS ARE EASY AND REGULAR.
[2020-03-12 12:00] VITALS: BP 133/69
[2020-03-12 16:00] VITALS: BP 173/109
[2020-03-12 20:00] VITALS: BP 150/90
[2020-03-13] VITALS: BP 192/105
--- NOTE | 2020-03-13 02:00 | NUR ---
Patient resting quietly with no c/o discomfort. Respirations easy and regular. Vital signs stable. No overt distress. ZAYRA MUSE
[2020-03-13 08:00] VITALS: BP 139/86
--- NOTE | 2020-03-13 08:00 | NUR ---
ASSESSMENT COMPLETE SEE FLOWSHEET. IN STABLE CONDITION. CALL LIGHT IN REACH.
[2020-03-13 12:00] VITALS: BP 154/93
[2020-03-13 16:00] VITALS: BP 168/88
[2020-03-13 20:00] VITALS: BP 172/88
--- NOTE | 2020-03-13 20:00 | NUR ---
BLOOD SUGAR 411; COVERAGE PER EMAR.
[2020-03-14] VITALS: BP 162/90
[2020-03-14 12:00] VITALS: BP 123/82
[2020-03-14 16:00] VITALS: BP 139/85
[2020-03-14 20:00] VITALS: BP 142/83
--- NOTE | 2020-03-14 20:44 | NUR ---
When time for IVPB vancomycin to infuse no old bag of medication was on IV pole. When quetioned the patient about what happend he stated "Oh I took those off and threw them away because the tubing was all tangled up." Explained to patient that tubing was no longer able to use because it needed to stay clean/steril for use. Patient said "I'm sorry I just got bored." Told patient to not touch anymore of the IV tubing but to let the staff worry about all the IV medications/tubing. Patient voiced understanding.
--- NOTE | 2020-03-14 23:52 | NUR ---
BEDSIDE GLUCOSE DONE 401 RETEST DONE PER POLICY. AND 2353 BEDSIDE GLUCOSE 396. 12 UNITS REGULAR INSULIN GIVEN PER ORDER.
[2020-03-15] VITALS: BP 137/85
--- NOTE | 2020-03-15 01:32 | NUR ---
24 HR chart check completed.
[2020-03-15 08:00] VITALS: BP 120/63
[2020-03-15 09:11] LABS: CREATININE 1.65 mg/dL (0.70-1.30); POTASSIUM 4.3 mmol/L (3.5-5.1)
[2020-03-15 12:00] VITALS: BP 99/62
[2020-03-15 16:00] VITALS: BP 167/84
--- NOTE | 2020-03-15 17:05 | NUR ---
BEDSIDE GLUCOSE RESULT 571, REPEATED TEST, RESULT >600. STAT REFLEX GLUCOSE ORDERED PER POLICY. DR. ROCK PHONED FOR ORDER FOR HUMULIN R 25 UNITS X 1 NOW AND LANTUS INSULIN 25UNITS X 1 NOW. BOTH INSULINS ADMINISTERED ORDERED, STAT REFLEX GLUCOSE RESULTED 621.
[2020-03-15 20:00] VITALS: BP 136/83
--- NOTE | 2020-03-15 20:00 | NUR ---
Patient resting quietly with no c/o discomfort. Respirations easy and regular. Vital signs stable. No overt distress. LES CUTLER
[2020-03-16] VITALS: BP 140/85
--- NOTE | 2020-03-16 00:11 | NUR ---
24 HR chart check completed.
--- NOTE | 2020-03-16 04:00 | NUR ---
Patient resting quietly with no c/o discomfort. Respirations easy and regular. Vital signs stable. No overt distress. LES CUTLER
[2020-03-16 07:04] LABS: CREATININE 1.66 mg/dL (0.70-1.30)
[2020-03-16 08:00] VITALS: BP 141/84
--- NOTE | 2020-03-16 09:18 | NUR ---
TO ULTRSOUND VIA WHEELCHAIR
[2020-03-16 12:00] VITALS: BP 127/80
[2020-03-16 16:00] VITALS: BP 121/74
[2020-03-16 20:00] VITALS: BP 145/97
[2020-03-17] VITALS: BP 148/90
[2020-03-17 07:31] LABS: BASO % 0.3 % (0.0-1.0); EOS # 0.3 10*3/uL (0.0-0.4); EOS % 4.4 % (1.0-4.0); HEMATOCRIT 29.3 % (42.0-52.0); LYMPH # 2.2 10*3/uL (1.3-4.4); LYMPH % 33.6 % (27.0-41.0); MEAN CELL VOLUME 88.5 fl (80.0-94.0); MEAN CORPUSCULAR HGB CONC 32.8 g/dl (33.0-37.0); MEAN PLATELET VOLUME 10.3 fl (9.6-12.3); MONO # 0.6 10*3/uL (0.1-1.0); MONO % 8.6 % (3.0-9.0); NEUT # 3.5 10*3/uL (2.3-7.9); NEUT % 52.8 % (47.0-73.0); PLATELET COUNT AUTOMATED 174 10*3/uL (130-400); RED BLOOD COUNT 3.31 10*6/uL (4.50-5.90); RED CELL DISTRI WIDTH 12.6 % (0-14.5); WHITE BLOOD COUNT 6.5 10*3/uL (4.8-10.8)
[2020-03-17 07:43] LABS: CREATININE 1.74 mg/dL (0.70-1.30); POTASSIUM 4.4 mmol/L (3.5-5.1)
[2020-03-17 08:00] VITALS: BP 149/94
[2020-03-17] MEDS ORDERED: Humalog SQ (09:06)
[2020-03-17] MEDS ORDERED: Lantus SC (09:06)
[2020-03-17] MEDS ORDERED: BUSPAR15 MG PO (09:06)
[2020-03-17] MEDS ORDERED: CLEOCIN HCL300 MG PO ×2 (09:06)
[2020-03-17] MEDS ORDERED: TRAZODONE50 MG PO (09:07)
[2020-03-17] MEDS ORDERED: APRESOLINE25 MG PO (09:08)
[2020-03-17] MEDS ORDERED: CEFUROXIME AXE250 MG PO (09:12)
--- NOTE | 2020-03-17 13:14 | NUR ---
[facility] FOR TRANSPORT HOME BY PRIVATE VEHICLE WITH FAMILY.
== END 2020-03-17 14:15 | disposition home or self-care (01) | DRG 383 ==
LOC: ED 18:04 → EDHOLD 21:44 → 5E 21:44
PROVIDERS: Nurse Practitioner Family; ADMIT Internal Medicine; ATTEND Internal Medicine
PROC: 0JBR0ZZ Excision of Left Foot Subcutaneous Tissue and Fascia, Open Approach (ICD-10-PCS; principal; 2020-03-12)
DX: L03.116 Cellulitis of left lower limb (principal); E10.65 Type 1 diabetes mellitus with hyperglycemia; G93.2 Benign intracranial hypertension; L89.890 Pressure ulcer of other site, unstageable; E78.2 Mixed hyperlipidemia; E10.51 Type 1 diabetes mellitus with diabetic peripheral angiopathy without gangrene; N18.2 Chronic kidney disease, stage 2 (mild); E10.22 Type 1 diabetes mellitus with diabetic chronic kidney disease; I12.9 Hypertensive chronic kidney disease with stage 1 through stage 4 chronic kidney disease, or unspecified chronic kidney disease; E10.42 Type 1 diabetes mellitus with diabetic polyneuropathy; F41.1 Generalized anxiety disorder; G25.81 Restless legs syndrome; F51.01 Primary insomnia; Z83.3 Family history of diabetes mellitus; Z82.5 Family history of asthma and other chronic lower respiratory diseases; Z91.19 Patient's noncompliance with other medical treatment and regimen; Z79.899 Other long term (current) drug therapy

== ENCOUNTER 2020-03-26 13:16 | Emergency (ER) | payer OTHER ==
[~2020-03-26] VITALS: Ht 180.3 cm; Wt 83.9 kg
[~2020-03-26 13:16] MED LIST changes: +APRESOLINE25 MG PO; +BUSPAR15 MG PO; +CLEOCIN HCL300 MG PO; +TRAZODONE50 MG PO
[2020-03-26 14:41] LABS: BASO % 0.3 % (0.0-1.0); EOS # 0.4 10*3/uL (0.0-0.4); EOS % 5.9 % (1.0-4.0); HEMATOCRIT 30.1 % (42.0-52.0); LYMPH # 1.6 10*3/uL (1.3-4.4); LYMPH % 23.3 % (27.0-41.0); MEAN CELL VOLUME 86.5 fl (80.0-94.0); MEAN CORPUSCULAR HGB 28.7 pg (27.0-31.0); MEAN CORPUSCULAR HGB CONC 33.2 g/dl (33.0-37.0); MEAN PLATELET VOLUME 10.1 fl (9.6-12.3); MONO # 0.4 10*3/uL (0.1-1.0); MONO % 6.1 % (3.0-9.0); NEUT # 4.5 10*3/uL (2.3-7.9); PLATELET COUNT AUTOMATED 198 10*3/uL (130-400); RED BLOOD COUNT 3.48 10*6/uL (4.50-5.90); RED CELL DISTRI WIDTH 12.8 % (0-14.5)
[2020-03-26 14:48] LABS: BILIRUBIN Negative (Negative); BLOOD 2+ (Negative); CLARITY Clear (Clear); COLOR Yellow (Yellow); GLUCOSE 3+ (Negative); KETONE Negative (Negative); LEUKO ESTERASE Negative (Negative); NITRITE Negative (Negative); PH 5.5 (4.5-8.0); UROBILINOGEN 0.2 E.U./dl (0.0-1.0)
[2020-03-26 14:53] LABS: ACT PARTIAL THROMBO TIME 25.5 SECONDS (20.0-32.1)
[2020-03-26 14:55] LABS: WBC 0-2 wbc/hpf (0-5)
[2020-03-26 14:56] LABS: EPITHELIAL CELLS 0-2
[2020-03-26 15:06] LABS: ALBUMIN 2.9 gm/dl (3.1-4.5); POTASSIUM 5.1 mmol/L (3.5-5.1); TOTAL PROTEIN 6.1 gm/dL (6.4-8.2)
== END 2020-03-26 15:28 | disposition home or self-care (01) ==
LOC: ED 13:16
PROVIDERS: Emergency Medicine
DX: N50.89 Other specified disorders of the male genital organs (principal); I10 Essential (primary) hypertension; E10.9 Type 1 diabetes mellitus without complications; Z79.899 Other long term (current) drug therapy

== ENCOUNTER → 2020-04-29 | Outpatient (CLI) | payer OTHER ==
[2020-04-29 12:50] LABS: CREATININE 1.9 mg/dL (0.70-1.30)
[2020-04-29 12:51] LABS: POTASSIUM 4.4 mmol/L (3.5-5.1)
== END | disposition home or self-care (01) ==
LOC: LAB 11:54
PROVIDERS: ATTEND Internal Medicine
DX: N18.2 Chronic kidney disease, stage 2 (mild) (principal); E11.9 Type 2 diabetes mellitus without complications; E29.1 Testicular hypofunction

== ENCOUNTER 2020-06-24 14:53 | Inpatient (IN) | payer OTHER ==
[~2020-06-24] VITALS: Ht 180.3 cm; Wt 77.6 kg
[2020-06-24 15:00] VITALS: BP 168/96
[2020-06-24 16:02] LABS: BASO % 0.1 % (0.0-1.0); HEMATOCRIT 36.9 % (42.0-52.0); LYMPH # 1.7 10*3/uL (1.3-4.4); LYMPH % 12.3 % (27.0-41.0); MEAN CORPUSCULAR HGB CONC 31.2 g/dl (33.0-37.0); MEAN PLATELET VOLUME 10.8 fl (9.6-12.3); MONO # 0.7 10*3/uL (0.1-1.0); MONO % 4.7 % (3.0-9.0); NEUT # 11.3 10*3/uL (2.3-7.9); NEUT % 81.6 % (47.0-73.0); PLATELET COUNT AUTOMATED 294 10*3/uL (130-400); RED CELL DISTRI WIDTH 13.3 % (0-14.5); WHITE BLOOD COUNT 13.8 10*3/uL (4.8-10.8)
[2020-06-24 16:14] LABS: ACT PARTIAL THROMBO TIME 22.1 SECONDS (20.0-32.1)
[2020-06-24 16:19] LABS: ALBUMIN 3.5 gm/dl (3.1-4.5); ALKALINE PHOSPHATASE 152 U/L (45-117); BUN 42 mg/dl (7-24); CHLORIDE 89 mmol/L (98-107); CREATININE 3.02 mg/dL (0.70-1.30); LIPASE 309 U/L (73-393); POTASSIUM 4.8 mmol/L (3.5-5.1); SGOT/AST 16 IU/L (3-35); SGPT/ALT 33 U/L (12-78); SODIUM 133 mmol/L (136-145)
[2020-06-24 16:24] LABS: BILIRUBIN Negative (Negative); BLOOD 2+ (Negative); CLARITY Clear (Clear); COLOR Yellow (Yellow); GLUCOSE 3+ (Negative); KETONE 3+ (Negative); LEUKO ESTERASE Negative (Negative); NITRITE Negative (Negative); SPECIFIC GRAVITY 1.025 (1.001-1.030); UROBILINOGEN 0.2 E.U./dl (0.0-1.0)
[2020-06-24 16:24] LABS: TROPONIN I < 0.015 ng/ml (<0.045)
[2020-06-24 16:32] LABS: BACTERIA TRACE; EPITHELIAL CELLS 0-2; WBC 0-2 wbc/hpf (0-5)
[2020-06-24 16:49] VITALS: BP 150/80
[2020-06-24 17:12] VITALS: BP 163/84
[2020-06-24] MEDS ORDERED: HUMALOG100 UNIT/2 SQ (17:45)
[2020-06-24] MEDS ORDERED: LANTUS SOL100 UNIT/1 SC (17:46)
[2020-06-24] MEDS ORDERED: LISINOPRIL2.5 MG PO (17:47)
[2020-06-24 20:00] VITALS: BP 179/90
[2020-06-25] VITALS: BP 129/70
[2020-06-25 04:00] VITALS: BP 103/57; BP 132/62
[2020-06-25 06:21] LABS: CREATININE 2.44 mg/dL (0.70-1.30)
[2020-06-25 06:26] LABS: BASO % 0.1 % (0.0-1.0); EOS # 0.1 10*3/uL (0.0-0.4); EOS % 0.4 % (1.0-4.0); HEMATOCRIT 28.3 % (42.0-52.0); LYMPH # 2.3 10*3/uL (1.3-4.4); LYMPH % 20.1 % (27.0-41.0); MEAN CORPUSCULAR HGB 29.1 pg (27.0-31.0); MEAN PLATELET VOLUME 10.2 fl (9.6-12.3); NEUT # 8.1 10*3/uL (2.3-7.9); NEUT % 69.9 % (47.0-73.0); PLATELET COUNT AUTOMATED 239 10*3/uL (130-400); RED CELL DISTRI WIDTH 13.4 % (0-14.5); WHITE BLOOD COUNT 11.5 10*3/uL (4.8-10.8)
[2020-06-25 06:29] LABS: MEAN CELL VOLUME 83.2 fl (80.0-94.0)
[2020-06-25 06:34] LABS: POTASSIUM 3.1 mmol/L (3.5-5.1)
[2020-06-25 08:00] VITALS: BP 145/70
[2020-06-25 12:00] VITALS: BP 112/57
[2020-06-25 16:00] VITALS: BP 120/60
[2020-06-25 18:14] LABS: CREATININE 2.81 mg/dL (0.70-1.30); POTASSIUM 2.9 mmol/L (3.5-5.1)
[2020-06-25 20:00] VITALS: BP 120/67
[2020-06-26] VITALS: BP 131/80
[2020-06-26 04:00] VITALS: BP 128/80
[2020-06-26 06:10] LABS: ALBUMIN 2.7 gm/dl (3.1-4.5); CREATININE 2.52 mg/dL (0.70-1.30); POTASSIUM 3.7 mmol/L (3.5-5.1); TOTAL PROTEIN 5.3 gm/dL (6.4-8.2)
[2020-06-26 06:32] LABS: BASO % 0.1 % (0.0-1.0); EOS # 0.1 10*3/uL (0.0-0.4); HEMATOCRIT 26.1 % (42.0-52.0); LYMPH # 2.4 10*3/uL (1.3-4.4); LYMPH % 33.8 % (27.0-41.0); MEAN CORPUSCULAR HGB 28.7 pg (27.0-31.0); MEAN CORPUSCULAR HGB CONC 33.7 g/dl (33.0-37.0); MONO # 0.5 10*3/uL (0.1-1.0); MONO % 6.4 % (3.0-9.0); NEUT # 4.1 10*3/uL (2.3-7.9); NEUT % 57.4 % (47.0-73.0); RED BLOOD COUNT 3.07 10*6/uL (4.50-5.90); RED CELL DISTRI WIDTH 13.3 % (0-14.5); WHITE BLOOD COUNT 7.2 10*3/uL (4.8-10.8)
[2020-06-26 06:46] LABS: PLATELET COUNT AUTOMATED 152 10*3/uL (130-400)
[2020-06-26 08:00] VITALS: BP 133/78
[2020-06-26 12:00] VITALS: BP 122/89
[2020-06-26 16:00] VITALS: BP 136/81
[2020-06-26 20:00] VITALS: BP 122/81
[2020-06-27] VITALS: BP 150/93
[2020-06-27 04:22] LABS: BASO % 0.2 % (0.0-1.0); EOS # 0.2 10*3/uL (0.0-0.4); HEMATOCRIT 29.1 % (42.0-52.0); LYMPH # 2.1 10*3/uL (1.3-4.4); LYMPH % 39.4 % (27.0-41.0); MEAN CELL VOLUME 85.8 fl (80.0-94.0); MEAN CORPUSCULAR HGB 28.9 pg (27.0-31.0); MEAN CORPUSCULAR HGB CONC 33.7 g/dl (33.0-37.0); MEAN PLATELET VOLUME 9.8 fl (9.6-12.3); MONO # 0.3 10*3/uL (0.1-1.0); MONO % 6.3 % (3.0-9.0); NEUT # 2.7 10*3/uL (2.3-7.9); NEUT % 50.9 % (47.0-73.0); PLATELET COUNT AUTOMATED 128 10*3/uL (130-400); RED BLOOD COUNT 3.39 10*6/uL (4.50-5.90); RED CELL DISTRI WIDTH 13.1 % (0-14.5); WHITE BLOOD COUNT 5.4 10*3/uL (4.8-10.8)
[2020-06-27 04:51] LABS: CREATININE 2.11 mg/dL (0.70-1.30); POTASSIUM 4.2 mmol/L (3.5-5.1)
[2020-06-27] MEDS ORDERED: Lantus SC (07:48)
[2020-06-27] MEDS ORDERED: LISINOPRIL2.5 MG PO (07:49)
[2020-06-27 08:00] VITALS: BP 108/74
[2020-06-27 12:00] VITALS: BP 128/74
== END 2020-06-27 13:29 | disposition home or self-care (01) | DRG 420 ==
LOC: ED 14:53 → ICCU 16:40 → EDHOLD 16:40 → ICCU 16:49
PROVIDERS: Emergency Medicine; ADMIT Internal Medicine; ATTEND Internal Medicine
DX: E11.10 Type 2 diabetes mellitus with ketoacidosis without coma (principal); N17.0 Acute kidney failure with tubular necrosis; E87.6 Hypokalemia; F11.10 Opioid abuse, uncomplicated; F12.10 Cannabis abuse, uncomplicated; E86.0 Dehydration; E11.22 Type 2 diabetes mellitus with diabetic chronic kidney disease; E11.42 Type 2 diabetes mellitus with diabetic polyneuropathy; G25.81 Restless legs syndrome; F41.1 Generalized anxiety disorder; I12.9 Hypertensive chronic kidney disease with stage 1 through stage 4 chronic kidney disease, or unspecified chronic kidney disease; Z20.822 Contact with and (suspected) exposure to COVID-19; N18.32 Chronic kidney disease, stage 3b; D63.8 Anemia in other chronic diseases classified elsewhere; Z83.3 Family history of diabetes mellitus; Z82.5 Family history of asthma and other chronic lower respiratory diseases

== ENCOUNTER 2020-12-30 07:28 | Inpatient (IN) | payer OTHER ==
[~2020-12-30] VITALS: Ht 180.3 cm; Wt 83.5 kg
[2020-12-30] VITALS (10 sets, daily range): BP systolic 147–215; BP diastolic 75–93
[~2020-12-30 07:28] MED LIST changes: +HUMALOG100 UNIT/2 SQ; +LISINOPRIL2.5 MG PO
[2020-12-30 08:11] LABS: BASO % 0.2 % (0.0-1.0); EOS # 0.1 10*3/uL (0.0-0.4); HEMATOCRIT 34.1 % (42.0-52.0); LYMPH # 1.6 10*3/uL (1.3-4.4); LYMPH % 19.6 % (27.0-41.0); MEAN CELL VOLUME 85.9 fl (80.0-94.0); MEAN CORPUSCULAR HGB 29.2 pg (27.0-31.0); MEAN PLATELET VOLUME 10.4 fl (9.6-12.3); MONO # 0.6 10*3/uL (0.1-1.0); MONO % 6.8 % (3.0-9.0); NEUT # 5.8 10*3/uL (2.3-7.9); NEUT % 72.2 % (47.0-73.0); PLATELET COUNT AUTOMATED 184 10*3/uL (130-400); RED BLOOD COUNT 3.97 10*6/uL (4.50-5.90); RED CELL DISTRI WIDTH 12.5 % (0-14.5); WHITE BLOOD COUNT 8.1 10*3/uL (4.8-10.8)
[2020-12-30 08:20] LABS: BILIRUBIN Negative (Negative); BLOOD 2+ (Negative); CLARITY Clear (Clear); COLOR Yellow (Yellow); GLUCOSE 3+ (Negative); KETONE 2+ (Negative); LEUKO ESTERASE Negative (Negative); NITRITE Negative (Negative); SPECIFIC GRAVITY 1.025 (1.001-1.030)
[2020-12-30 08:27] LABS: ALBUMIN 3.5 gm/dl (3.1-4.5); ALKALINE PHOSPHATASE 123 U/L (45-117); BUN 42 mg/dl (7-24); CHLORIDE 89 mmol/L (98-107); LIPASE 49 U/L (73-393); POTASSIUM 4.2 mmol/L (3.5-5.1); SGOT/AST 26 IU/L (3-35); SGPT/ALT 35 U/L (12-78); SODIUM 128 mmol/L (136-145); TOTAL PROTEIN 6.7 gm/dL (6.4-8.2)
[2020-12-30 08:27] LABS: BACTERIA TRACE; EPITHELIAL CELLS 0-2; RBC 16-20 rbc/hpf (0-2); WBC 0-2 wbc/hpf (0-5)
[2020-12-30 08:33] LABS: TROPONIN I < 0.015 ng/ml (<0.045)
[2020-12-30] MEDS ORDERED: 'CLONIDINE0.1 MG PO (10:58)
[2020-12-31] VITALS: BP 173/85
[2020-12-31 06:23] LABS: CREATININE 1.96 mg/dL (0.70-1.30); POTASSIUM 3.9 mmol/L (3.5-5.1)
[2020-12-31 08:00] VITALS: BP 184/86
[2020-12-31 12:00] VITALS: BP 179/92
[2020-12-31 16:00] VITALS: BP 170/95
[2020-12-31 20:00] VITALS: BP 173/103
[2021-01-01] VITALS: BP 162/89
[2021-01-01 05:59] LABS: CREATININE 1.99 mg/dL (0.70-1.30); POTASSIUM 3.8 mmol/L (3.5-5.1)
[2021-01-01 06:34] LABS: BASO % 0.2 % (0.0-1.0); EOS # 0.2 10*3/uL (0.0-0.4); EOS % 3.6 % (1.0-4.0); HEMATOCRIT 29.9 % (42.0-52.0); LYMPH # 2.4 10*3/uL (1.3-4.4); LYMPH % 41.6 % (27.0-41.0); MEAN CELL VOLUME 86.4 fl (80.0-94.0); MEAN CORPUSCULAR HGB 29.2 pg (27.0-31.0); MEAN CORPUSCULAR HGB CONC 33.8 g/dl (33.0-37.0); MEAN PLATELET VOLUME 11.1 fl (9.6-12.3); MONO # 0.4 10*3/uL (0.1-1.0); MONO % 6.5 % (3.0-9.0); NEUT # 2.8 10*3/uL (2.3-7.9); NEUT % 47.8 % (47.0-73.0); PLATELET COUNT AUTOMATED 147 10*3/uL (130-400); RED BLOOD COUNT 3.46 10*6/uL (4.50-5.90); RED CELL DISTRI WIDTH 12.7 % (0-14.5); WHITE BLOOD COUNT 5.9 10*3/uL (4.8-10.8)
[2021-01-01 08:00] VITALS: BP 140/82
[2021-01-01 08:40] LABS: PTH INTACT 87.1 pg/mL (18.5-88.0); VITAMIN D, 25-HYDROXY 17.8 ng/mL (30-100)
[2021-01-01 12:00] VITALS: BP 162/87
[2021-01-01 16:00] VITALS: BP 170/99
[2021-01-02 08:07] LABS: CREATININE,URINE 102.3 mg/dL (Not Estab.)
== END 2021-01-01 18:37 | disposition left against medical advice (07) | DRG 48 ==
LOC: ED 07:28 → EDHOLD 09:29 → 4E 09:29
PROVIDERS: Emergency Medicine; Internal Medicine Nephrology; ADMIT Internal Medicine; ATTEND Internal Medicine
DX: E11.43 Type 2 diabetes mellitus with diabetic autonomic (poly)neuropathy (principal); E86.0 Dehydration; E11.65 Type 2 diabetes mellitus with hyperglycemia; K31.84 Gastroparesis; N17.0 Acute kidney failure with tubular necrosis; G25.81 Restless legs syndrome; N18.4 Chronic kidney disease, stage 4 (severe); R80.9 Proteinuria, unspecified; R79.89 Other specified abnormal findings of blood chemistry; E11.42 Type 2 diabetes mellitus with diabetic polyneuropathy; Z53.29 Procedure and treatment not carried out because of patient's decision for other reasons; F17.210 Nicotine dependence, cigarettes, uncomplicated; I12.9 Hypertensive chronic kidney disease with stage 1 through stage 4 chronic kidney disease, or unspecified chronic kidney disease; E11.22 Type 2 diabetes mellitus with diabetic chronic kidney disease; Z83.3 Family history of diabetes mellitus; Z82.5 Family history of asthma and other chronic lower respiratory diseases; Z82.49 Family history of ischemic heart disease and other diseases of the circulatory system; Z79.899 Other long term (current) drug therapy; Z91.11 Patient's noncompliance with dietary regimen

== ENCOUNTER 2021-01-24 00:48 | Emergency (ER) | payer OTHER ==
[~2021-01-24] VITALS: Ht 180.3 cm; Wt 83.9 kg
== END 2021-01-24 03:10 | disposition home or self-care (01) ==
LOC: ED 00:48
DX: S61.210A Laceration without foreign body of right index finger without damage to nail, initial encounter (principal); F17.200 Nicotine dependence, unspecified, uncomplicated; F12.10 Cannabis abuse, uncomplicated; Z90.89 Acquired absence of other organs; Z79.899 Other long term (current) drug therapy; W45.8XXA Other foreign body or object entering through skin, initial encounter; Y93.89 Activity, other specified; Y92.89 Other specified places as the place of occurrence of the external cause; Y99.9 Unspecified external cause status

== ENCOUNTER 2021-01-26 13:30 | Inpatient (IN) | payer OTHER ==
[~2021-01-26] VITALS: Ht 180.3 cm; Wt 83.5 kg
[2021-01-26 13:49] VITALS: BP 226/114
[2021-01-26 14:48] LABS: BASO % 0.1 % (0.0-1.0); EOS % 0.1 % (1.0-4.0); HEMATOCRIT 35.3 % (42.0-52.0); LYMPH # 1.5 10*3/uL (1.3-4.4); LYMPH % 10.7 % (27.0-41.0); MEAN CORPUSCULAR HGB 29.5 pg (27.0-31.0); MEAN CORPUSCULAR HGB CONC 35.1 g/dl (33.0-37.0); MEAN PLATELET VOLUME 10.8 fl (9.6-12.3); MONO # 0.7 10*3/uL (0.1-1.0); NEUT # 11.6 10*3/uL (2.3-7.9); NEUT % 83.5 % (47.0-73.0); PLATELET COUNT AUTOMATED 264 10*3/uL (130-400); RED CELL DISTRI WIDTH 12.4 % (0-14.5); WHITE BLOOD COUNT 13.8 10*3/uL (4.8-10.8)
[2021-01-26 15:04] LABS: ALBUMIN 3.6 gm/dl (3.1-4.5); ALKALINE PHOSPHATASE 148 U/L (45-117); BUN 45 mg/dl (7-24); CHLORIDE 91 mmol/L (98-107); CREATININE 2.59 mg/dL (0.70-1.30); POTASSIUM 4.4 mmol/L (3.5-5.1); SGOT/AST 14 IU/L (3-35); SGPT/ALT 29 U/L (12-78); SODIUM 133 mmol/L (136-145); TOTAL PROTEIN 7.4 gm/dL (6.4-8.2)
[2021-01-26 15:15] LABS: TROPONIN I < 0.015 ng/ml (<0.045)
[2021-01-26 16:40] VITALS: BP 180/80
[2021-01-26 17:53] LABS: BILIRUBIN Negative (Negative); BLOOD 2+ (Negative); CLARITY Clear (Clear); COLOR Yellow (Yellow); GLUCOSE 3+ (Negative); KETONE 3+ (Negative); LEUKO ESTERASE Negative (Negative); NITRITE Negative (Negative); SPECIFIC GRAVITY 1.025 (1.001-1.030); UROBILINOGEN 0.2 E.U./dl (0.0-1.0)
[2021-01-26 18:01] LABS: RBC 16-20 rbc/hpf (0-2)
[2021-01-26 18:02] LABS: BACTERIA TRACE; WBC 0-2 wbc/hpf (0-5)
[2021-01-26 18:21] VITALS: BP 160/70
[2021-01-26] MEDS ORDERED: CLONIDINE0.2 MG PO (21:06)
[2021-01-26] MEDS ORDERED: APRESOLINE25 MG PO (21:06)
[2021-01-26 22:04] VITALS: BP 162/70
[2021-01-26 23:20] VITALS: BP 180/90; BP 207/90
[2021-01-27] VITALS (7 sets, daily range): BP systolic 106–134; BP diastolic 57–72
[2021-01-27 05:50] LABS: CREATININE 3.02 mg/dL (0.70-1.30); POTASSIUM 3.9 mmol/L (3.5-5.1)
[2021-01-27 06:14] LABS: BASO % 0.1 % (0.0-1.0); HEMATOCRIT 29.5 % (42.0-52.0); LYMPH # 2.1 10*3/uL (1.3-4.4); LYMPH % 15.6 % (27.0-41.0); MEAN CELL VOLUME 83.8 fl (80.0-94.0); MEAN CORPUSCULAR HGB 29.3 pg (27.0-31.0); MEAN CORPUSCULAR HGB CONC 34.9 g/dl (33.0-37.0); MEAN PLATELET VOLUME 11.3 fl (9.6-12.3); MONO % 7.6 % (3.0-9.0); NEUT # 10.3 10*3/uL (2.3-7.9); NEUT % 76.2 % (47.0-73.0); PLATELET COUNT AUTOMATED 204 10*3/uL (130-400); RED BLOOD COUNT 3.52 10*6/uL (4.50-5.90); RED CELL DISTRI WIDTH 12.6 % (0-14.5); WHITE BLOOD COUNT 13.5 10*3/uL (4.8-10.8)
[2021-01-27] MEDS ORDERED: CLONIDINE HCL0.1 MG PO (13:12)
[2021-01-27] MEDS ORDERED: FUROSEMIDE40 MG PO (13:14)
[2021-01-27] MEDS ORDERED: LEVEMIR FL100 UNIT/1 SC (13:15)
[2021-01-27] MEDS ORDERED: NOVOLIN R100 UNIT/1 SQ (13:16)
[2021-01-28] VITALS (9 sets, daily range): BP systolic 113–170; BP diastolic 62–100
[2021-01-28 06:15] LABS: BASO % 0.2 % (0.0-1.0); EOS # 0.3 10*3/uL (0.0-0.4); EOS % 3.3 % (1.0-4.0); HEMATOCRIT 27.9 % (42.0-52.0); LYMPH # 3.4 10*3/uL (1.3-4.4); LYMPH % 35.9 % (27.0-41.0); MEAN CELL VOLUME 84.3 fl (80.0-94.0); MEAN CORPUSCULAR HGB CONC 34.4 g/dl (33.0-37.0); MEAN PLATELET VOLUME 10.6 fl (9.6-12.3); MONO # 0.5 10*3/uL (0.1-1.0); MONO % 5.8 % (3.0-9.0); NEUT # 5.1 10*3/uL (2.3-7.9); NEUT % 54.1 % (47.0-73.0); PLATELET COUNT AUTOMATED 183 10*3/uL (130-400); RED BLOOD COUNT 3.31 10*6/uL (4.50-5.90); RED CELL DISTRI WIDTH 12.6 % (0-14.5); WHITE BLOOD COUNT 9.4 10*3/uL (4.8-10.8)
[2021-01-28 06:23] LABS: ALBUMIN 2.5 gm/dl (3.1-4.5); ALKALINE PHOSPHATASE 93 U/L (45-117); BUN 41 mg/dl (7-24); CHLORIDE 99 mmol/L (98-107); CREATININE 2.57 mg/dL (0.70-1.30); POTASSIUM 3.1 mmol/L (3.5-5.1); SGOT/AST 24 IU/L (3-35); SGPT/ALT 24 U/L (12-78); SODIUM 135 mmol/L (136-145); TOTAL PROTEIN 5.3 gm/dL (6.4-8.2)
[2021-01-29] VITALS: BP 182/95
[2021-01-29 04:00] VITALS: BP 182/95
[2021-01-29 08:00] VITALS: BP 182/96
[2021-01-29] MEDS ORDERED: DOXYCYCLINE HY100 M3 PO (08:21)
[2021-01-29] MEDS ORDERED: PRILOSEC20 M1 PO (08:21)
[2021-01-29] MEDS ORDERED: LEVEMIR FL100 UNIT/1 SC (08:21)
[2021-01-29] MEDS ORDERED: VICTOZA 2-0.6 MG/0.1 SC (08:21)
[2021-01-29] MEDS ORDERED: APRESOLINE25 MG PO (08:34)
[2021-01-29] MEDS ORDERED: HYDRALAZINE HYD50 MG PO (08:36)
[2021-01-29 08:38] LABS: BASO % 0.3 % (0.0-1.0); EOS # 0.2 10*3/uL (0.0-0.4); EOS % 2.3 % (1.0-4.0); HEMATOCRIT 33.6 % (42.0-52.0); LYMPH # 2.5 10*3/uL (1.3-4.4); LYMPH % 33.8 % (27.0-41.0); MEAN CELL VOLUME 85.3 fl (80.0-94.0); MEAN CORPUSCULAR HGB 28.9 pg (27.0-31.0); MEAN CORPUSCULAR HGB CONC 33.9 g/dl (33.0-37.0); MEAN PLATELET VOLUME 10.3 fl (9.6-12.3); MONO # 0.6 10*3/uL (0.1-1.0); MONO % 7.3 % (3.0-9.0); NEUT # 4.2 10*3/uL (2.3-7.9); NEUT % 56.2 % (47.0-73.0); PLATELET COUNT AUTOMATED 167 10*3/uL (130-400); RED BLOOD COUNT 3.94 10*6/uL (4.50-5.90); RED CELL DISTRI WIDTH 12.1 % (0-14.5); WHITE BLOOD COUNT 7.5 10*3/uL (4.8-10.8)
[2021-01-29 08:52] LABS: CREATININE 1.91 mg/dL (0.70-1.30)
[2021-01-29 08:56] LABS: POTASSIUM 4.2 mmol/L (3.5-5.1)
[2021-01-29 12:00] VITALS: BP 164/104
== END 2021-01-29 15:53 | disposition home or self-care (01) | DRG 316 ==
LOC: ED 13:30 → EDHOLD 17:39 → 5E 17:39
PROVIDERS: Emergency Medicine; ADMIT Internal Medicine; ATTEND Internal Medicine
PROC: 0LQ70ZZ Repair Right Hand Tendon, Open Approach (ICD-10-PCS; principal; 2021-01-28)
PROC: 3E0T3BZ Introduction of Anesthetic Agent into Peripheral Nerves and Plexi, Percutaneous Approach (ICD-10-PCS; 2021-01-28)
DX: S66.320A Laceration of extensor muscle, fascia and tendon of right index finger at wrist and hand level, initial encounter (principal); E11.10 Type 2 diabetes mellitus with ketoacidosis without coma; E11.22 Type 2 diabetes mellitus with diabetic chronic kidney disease; E11.65 Type 2 diabetes mellitus with hyperglycemia; N18.32 Chronic kidney disease, stage 3b; I12.9 Hypertensive chronic kidney disease with stage 1 through stage 4 chronic kidney disease, or unspecified chronic kidney disease; K21.9 Gastro-esophageal reflux disease without esophagitis; E11.42 Type 2 diabetes mellitus with diabetic polyneuropathy; X58.XXXA Exposure to other specified factors, initial encounter; Y93.89 Activity, other specified; Y92.89 Other specified places as the place of occurrence of the external cause; Y99.8 Other external cause status; Z83.3 Family history of diabetes mellitus; Z82.5 Family history of asthma and other chronic lower respiratory diseases; Z91.19 Patient's noncompliance with other medical treatment and regimen

== ENCOUNTER 2021-02-01 11:55 | Inpatient (IN) | payer OTHER ==
[~2021-02-01] VITALS: Ht 180.3 cm; Wt 72.6 kg
[~2021-02-01 11:55] MED LIST changes: +CLONIDINE HCL0.1 MG PO; +CLONIDINE0.2 MG PO; +DOXYCYCLINE HY100 M3 PO; +FUROSEMIDE40 MG PO; +HYDRALAZINE HYD50 MG PO; +LEVEMIR FL100 UNIT/1 SC; +NOVOLIN R100 UNIT/1 SQ; +PRILOSEC20 M1 PO; +VICTOZA 2-0.6 MG/0.1 SC
[2021-02-01 12:28] VITALS: BP 146/76
[2021-02-01 13:21] LABS: BASO % 0.2 % (0.0-1.0); EOS % 0.2 % (1.0-4.0); LYMPH # 2.2 10*3/uL (1.3-4.4); LYMPH % 11.5 % (27.0-41.0); MEAN CELL VOLUME 88.1 fl (80.0-94.0); MEAN CORPUSCULAR HGB 29.3 pg (27.0-31.0); MEAN CORPUSCULAR HGB CONC 33.2 g/dl (33.0-37.0); MEAN PLATELET VOLUME 11.3 fl (9.6-12.3); MONO # 0.7 10*3/uL (0.1-1.0); MONO % 3.7 % (3.0-9.0); NEUT # 16.4 10*3/uL (2.3-7.9); NEUT % 83.7 % (47.0-73.0); PLATELET COUNT AUTOMATED 318 10*3/uL (130-400); RED BLOOD COUNT 3.86 10*6/uL (4.50-5.90); RED CELL DISTRI WIDTH 12.7 % (0-14.5); WHITE BLOOD COUNT 19.5 10*3/uL (4.8-10.8)
[2021-02-01 13:37] LABS: ALBUMIN 3.5 gm/dl (3.1-4.5); ALKALINE PHOSPHATASE 133 U/L (45-117); BUN 48 mg/dl (7-24); CHLORIDE 85 mmol/L (98-107); CREATININE 3.23 mg/dL (0.70-1.30); LIPASE 46 U/L (73-393); POTASSIUM 4.7 mmol/L (3.5-5.1); SGOT/AST 18 IU/L (3-35); SGPT/ALT 27 U/L (12-78); SODIUM 128 mmol/L (136-145); TOTAL PROTEIN 6.5 gm/dL (6.4-8.2); TROPONIN I < 0.015 ng/ml (<0.045)
[2021-02-01 14:13] LABS: BILIRUBIN Negative (Negative); BLOOD 1+ (Negative); CLARITY Clear (Clear); COLOR Yellow (Yellow); GLUCOSE 3+ (Negative); KETONE 2+ (Negative); LEUKO ESTERASE Negative (Negative); NITRITE Negative (Negative); SPECIFIC GRAVITY 1.025 (1.001-1.030); UROBILINOGEN 0.2 E.U./dl (0.0-1.0)
[2021-02-01 14:20] LABS: BACTERIA TRACE; EPITHELIAL CELLS 0-2
[2021-02-01 15:09] VITALS: BP 210/105
[2021-02-01] MEDS ORDERED: APRESOLINE25 MG PO (15:28)
[2021-02-01 16:00] VITALS: BP 218/107
[2021-02-01 20:00] VITALS: BP 178/85
[2021-02-01 23:51] LABS: CREATININE 3.24 mg/dL (0.70-1.30)
[2021-02-01 23:52] LABS: POTASSIUM 3.4 mmol/L (3.5-5.1)
[2021-02-02] VITALS: BP 139/78
[2021-02-02 04:00] VITALS: BP 142/88
[2021-02-02 05:45] LABS: CREATININE 3.04 mg/dL (0.70-1.30); POTASSIUM 3.2 mmol/L (3.5-5.1)
[2021-02-02 06:16] LABS: BASO % 0.1 % (0.0-1.0); EOS # 0.1 10*3/uL (0.0-0.4); EOS % 0.7 % (1.0-4.0); HEMATOCRIT 26.6 % (42.0-52.0); LYMPH # 3.5 10*3/uL (1.3-4.4); LYMPH % 23.4 % (27.0-41.0); MEAN CORPUSCULAR HGB 29.2 pg (27.0-31.0); MEAN CORPUSCULAR HGB CONC 35.7 g/dl (33.0-37.0); MEAN PLATELET VOLUME 10.5 fl (9.6-12.3); MONO # 1.1 10*3/uL (0.1-1.0); MONO % 7.2 % (3.0-9.0); NEUT # 10.1 10*3/uL (2.3-7.9); NEUT % 68.1 % (47.0-73.0); PLATELET COUNT AUTOMATED 230 10*3/uL (130-400); RED BLOOD COUNT 3.25 10*6/uL (4.50-5.90); RED CELL DISTRI WIDTH 12.1 % (0-14.5); WHITE BLOOD COUNT 14.8 10*3/uL (4.8-10.8)
[2021-02-02 06:33] LABS: MEAN CELL VOLUME 81.8 fl (80.0-94.0)
[2021-02-02 08:00] VITALS: BP 155/88
[2021-02-02 12:00] VITALS: BP 179/94
[2021-02-02 16:00] VITALS: BP 196/110
[2021-02-02 20:00] VITALS: BP 157/93
[2021-02-03] VITALS: BP 168/92
[2021-02-03] MEDS ORDERED: CLONIDINE HCL0.1 MG PO (08:46)
[2021-02-03] MEDS ORDERED: ONDANSETRON8 MG PO (08:47)
[2021-02-03] MEDS ORDERED: APRESOLINE25 MG PO (08:47)
== END 2021-02-03 09:27 | disposition home or self-care (01) | DRG 420 ==
LOC: ED 11:55 → EDHOLD 13:56 → ICCU 13:56
PROVIDERS: Emergency Medicine; ADMIT Internal Medicine; ATTEND Internal Medicine
DX: E11.10 Type 2 diabetes mellitus with ketoacidosis without coma (principal); I12.9 Hypertensive chronic kidney disease with stage 1 through stage 4 chronic kidney disease, or unspecified chronic kidney disease; F17.210 Nicotine dependence, cigarettes, uncomplicated; E87.6 Hypokalemia; E11.42 Type 2 diabetes mellitus with diabetic polyneuropathy; E23.0 Hypopituitarism; E11.22 Type 2 diabetes mellitus with diabetic chronic kidney disease; N18.4 Chronic kidney disease, stage 4 (severe); Z91.19 Patient's noncompliance with other medical treatment and regimen; Z82.5 Family history of asthma and other chronic lower respiratory diseases; Z83.3 Family history of diabetes mellitus

== ENCOUNTER → 2021-03-10 | Outpatient (CLI) | payer OTHER ==
[~2021-03-10] MED LIST changes: +ONDANSETRON8 MG PO
[2021-03-10 12:35] LABS: BASO % 0.3 % (0.0-1.0); EOS # 0.3 10*3/uL (0.0-0.4); EOS % 3.5 % (1.0-4.0); HEMATOCRIT 37.2 % (42.0-52.0); LYMPH # 2.7 10*3/uL (1.3-4.4); MEAN CELL VOLUME 89.9 fl (80.0-94.0); MEAN CORPUSCULAR HGB CONC 32.3 g/dl (33.0-37.0); MEAN PLATELET VOLUME 10.6 fl (9.6-12.3); MONO # 0.6 10*3/uL (0.1-1.0); MONO % 8.5 % (3.0-9.0); NEUT # 3.5 10*3/uL (2.3-7.9); NEUT % 49.3 % (47.0-73.0); PLATELET COUNT AUTOMATED 219 10*3/uL (130-400); RED BLOOD COUNT 4.14 10*6/uL (4.50-5.90); RED CELL DISTRI WIDTH 13.3 % (0-14.5); WHITE BLOOD COUNT 7.2 10*3/uL (4.8-10.8)
[2021-03-10 12:38] LABS: BILIRUBIN Negative (Negative); BLOOD 2+ (Negative); CLARITY Clear (Clear); COLOR Yellow (Yellow); GLUCOSE Trace (Negative); KETONE Negative (Negative); LEUKO ESTERASE Negative (Negative); NITRITE Negative (Negative); PH 6.5 (4.5-8.0); SPECIFIC GRAVITY 1.015 (1.001-1.030); UROBILINOGEN 0.2 E.U./dl (0.0-1.0)
[2021-03-10 12:46] LABS: URINE CREATININE RANDOM 71.9 mg/dL
[2021-03-10 13:06] LABS: ALBUMIN 3.6 gm/dl (3.1-4.5); CREATININE 1.97 mg/dL (0.70-1.30); POTASSIUM 4.5 mmol/L (3.5-5.1)
[2021-03-10 13:09] LABS: RBC 21-30 rbc/hpf (0-2)
[2021-03-10 13:44] LABS: FERRITIN 27.5 ng/mL (22.0-322.0)
[2021-03-10 13:45] LABS: PTH INTACT 84.3 pg/mL (18.5-88.0)
== END | disposition home or self-care (01) ==
LOC: LAB 12:09
PROVIDERS: ATTEND Internal Medicine Nephrology
DX: N18.30 Chronic kidney disease, stage 3 unspecified (principal)

== ENCOUNTER → 2021-05-18 | Outpatient (CLI) | payer OTHER | END | disposition home or self-care (01) | LOC: COVID19 17:08 | PROVIDERS: ATTEND Internal Medicine | DX: Z11.52 Encounter for screening for COVID-19 (principal) ==

== ENCOUNTER 2021-06-06 18:09 | Emergency (ER) | payer OTHER ==
[~2021-06-06] VITALS: Ht 180.3 cm; Wt 78.0 kg
== END 2021-06-06 21:02 | disposition home or self-care (01) ==
LOC: ED 18:09
DX: S42.002A Fracture of unspecified part of left clavicle, initial encounter for closed fracture (principal); F17.200 Nicotine dependence, unspecified, uncomplicated; Z79.899 Other long term (current) drug therapy; Z90.89 Acquired absence of other organs; V57.5XXA Driver of pick-up truck or van injured in collision with fixed or stationary object in traffic accident, initial encounter; Y93.89 Activity, other specified; Y92.89 Other specified places as the place of occurrence of the external cause; Y99.8 Other external cause status

== ENCOUNTER → 2021-10-14 | Outpatient (CLI) | payer OTHER ==
[2021-10-14 17:27] LABS: BASO % 0.2 % (0.0-1.0); EOS # 0.2 10*3/uL (0.0-0.4); EOS % 2.7 % (1.0-4.0); HEMATOCRIT 30.9 % (42.0-52.0); LYMPH # 1.9 10*3/uL (1.3-4.4); LYMPH % 30.9 % (27.0-41.0); MEAN CELL VOLUME 84.2 fl (80.0-94.0); MEAN CORPUSCULAR HGB 28.9 pg (27.0-31.0); MEAN CORPUSCULAR HGB CONC 34.3 g/dl (33.0-37.0); MEAN PLATELET VOLUME 10.2 fl (9.6-12.3); MONO # 0.4 10*3/uL (0.1-1.0); MONO % 6.9 % (3.0-9.0); NEUT # 3.7 10*3/uL (2.3-7.9); NEUT % 59.1 % (47.0-73.0); PLATELET COUNT AUTOMATED 202 10*3/uL (130-400); RED BLOOD COUNT 3.67 10*6/uL (4.50-5.90); RED CELL DISTRI WIDTH 12.5 % (0-14.5); WHITE BLOOD COUNT 6.3 10*3/uL (4.8-10.8)
[2021-10-14 17:28] LABS: BILIRUBIN Negative (Negative); BLOOD 1+ (Negative); CLARITY Clear (Clear); COLOR Yellow (Yellow); GLUCOSE Negative (Negative); KETONE Negative (Negative); LEUKO ESTERASE Negative (Negative); NITRITE Negative (Negative); SPECIFIC GRAVITY 1.015 (1.001-1.030)
[2021-10-14 17:41] LABS: BACTERIA 2+
[2021-10-14 17:42] LABS: EPITHELIAL CELLS 0-2
[2021-10-14 17:44] LABS: URINE CREATININE RANDOM 99.3 mg/dL
[2021-10-14 17:47] LABS: CREATININE 2.44 mg/dL (0.70-1.30); POTASSIUM 5.2 mmol/L (3.5-5.1)
[2021-10-14 17:56] LABS: VITAMIN D, 25-HYDROXY 14.1 ng/mL (30-100)
[2021-10-14 17:57] LABS: FERRITIN 46.8 ng/mL (22.0-322.0)
== END | disposition home or self-care (01) ==
LOC: LAB 17:00
PROVIDERS: ATTEND Internal Medicine Nephrology
DX: E11.21 Type 2 diabetes mellitus with diabetic nephropathy (principal); N18.32 Chronic kidney disease, stage 3b; D63.1 Anemia in chronic kidney disease; E55.9 Vitamin D deficiency, unspecified; E78.5 Hyperlipidemia, unspecified

== ENCOUNTER 2022-04-16 20:14 | Emergency (ER) | payer OTHER ==
[~2022-04-16] VITALS: Ht 177.8 cm; Wt 81.6 kg
[2022-04-16 21:14] LABS: BASO % 0.2 % (0.0-1.0); EOS # 0.1 10*3/uL (0.0-0.4); EOS % 0.6 % (1.0-4.0); HEMATOCRIT 31.7 % (42.0-52.0); LYMPH # 1.9 10*3/uL (1.3-4.4); LYMPH % 20.8 % (27.0-41.0); MEAN CELL VOLUME 82.8 fl (80.0-94.0); MEAN CORPUSCULAR HGB 28.7 pg (27.0-31.0); MEAN CORPUSCULAR HGB CONC 34.7 g/dl (33.0-37.0); MEAN PLATELET VOLUME 10.5 fl (9.6-12.3); MONO # 0.7 10*3/uL (0.1-1.0); MONO % 7.8 % (3.0-9.0); NEUT # 6.3 10*3/uL (2.3-7.9); NEUT % 70.4 % (47.0-73.0); PLATELET COUNT AUTOMATED 232 10*3/uL (130-400); RED BLOOD COUNT 3.83 10*6/uL (4.50-5.90); RED CELL DISTRI WIDTH 12.9 % (0-14.5); WHITE BLOOD COUNT 8.9 10*3/uL (4.8-10.8)
[2022-04-16 21:30] LABS: CREATININE 3.12 mg/dL (0.70-1.30); POTASSIUM 4.2 mmol/L (3.5-5.1); TOTAL PROTEIN 6.6 gm/dL (6.4-8.2)
== END 2022-04-16 23:08 | disposition home or self-care (01) ==
LOC: ED 20:14
PROVIDERS: Internal Medicine
DX: E10.65 Type 1 diabetes mellitus with hyperglycemia (principal); N17.9 Acute kidney failure, unspecified; D64.9 Anemia, unspecified; E44.1 Mild protein-calorie malnutrition

== ENCOUNTER → 2022-04-19 | Outpatient (CLI) | payer OTHER | END | disposition home or self-care (01) | LOC: WOUNDCARE 00:48 | PROVIDERS: ATTEND Nurse Practitioner Family | DX: E10.622 Type 1 diabetes mellitus with other skin ulcer (principal); L97.812 Non-pressure chronic ulcer of other part of right lower leg with fat layer exposed; L97.822 Non-pressure chronic ulcer of other part of left lower leg with fat layer exposed; T24.302A Burn of third degree of unspecified site of left lower limb, except ankle and foot, initial encounter; T31.0 Burns involving less than 10% of body surface; E78.00 Pure hypercholesterolemia, unspecified; I10 Essential (primary) hypertension; M79.2 Neuralgia and neuritis, unspecified; F17.290 Nicotine dependence, other tobacco product, uncomplicated; Z71.6 Tobacco abuse counseling; X08.8XXA Exposure to other specified smoke, fire and flames, initial encounter; Y93.89 Activity, other specified; Y92.89 Other specified places as the place of occurrence of the external cause; Y99.8 Other external cause status ==

== ENCOUNTER → 2022-04-20 | Outpatient (CLI) | payer OTHER ==
[2022-04-20 19:30] LABS: BASO % 0.1 % (0.0-1.0); EOS # 0.2 10*3/uL (0.0-0.4); EOS % 3.2 % (1.0-4.0); HEMATOCRIT 31.7 % (42.0-52.0); LYMPH # 2.5 10*3/uL (1.3-4.4); LYMPH % 34.4 % (27.0-41.0); MEAN CELL VOLUME 87.8 fl (80.0-94.0); MEAN CORPUSCULAR HGB 29.1 pg (27.0-31.0); MEAN CORPUSCULAR HGB CONC 33.1 g/dl (33.0-37.0); MEAN PLATELET VOLUME 10.8 fl (9.6-12.3); MONO # 0.5 10*3/uL (0.1-1.0); MONO % 6.3 % (3.0-9.0); NEUT % 55.7 % (47.0-73.0); PLATELET COUNT AUTOMATED 225 10*3/uL (130-400); RED BLOOD COUNT 3.61 10*6/uL (4.50-5.90); RED CELL DISTRI WIDTH 13.2 % (0-14.5); WHITE BLOOD COUNT 7.2 10*3/uL (4.8-10.8)
[2022-04-20 19:31] LABS: BILIRUBIN Negative (Negative); BLOOD 2+ (Negative); CLARITY Clear (Clear); COLOR Yellow (Yellow); GLUCOSE 2+ (Negative); KETONE Negative (Negative); LEUKO ESTERASE Negative (Negative); NITRITE Negative (Negative); SPECIFIC GRAVITY 1.015 (1.001-1.030); UROBILINOGEN 0.2 E.U./dl (0.0-1.0)
[2022-04-20 19:39] LABS: POTASSIUM 4.6 mmol/L (3.4-5.1)
[2022-04-20 19:40] LABS: URINE CREATININE RANDOM 70.33 mg/dL
[2022-04-20 19:43] LABS: CREATININE 2.5 mg/dL (0.70-1.30)
[2022-04-20 19:51] LABS: VITAMIN D, 25-HYDROXY 16.4 ng/mL (30-100)
== END | disposition home or self-care (01) ==
LOC: LAB 18:28
PROVIDERS: ATTEND Internal Medicine Nephrology
DX: N18.31 Chronic kidney disease, stage 3a (principal); D53.1 Other megaloblastic anemias, not elsewhere classified; D63.1 Anemia in chronic kidney disease; E78.5 Hyperlipidemia, unspecified; E55.9 Vitamin D deficiency, unspecified; N25.81 Secondary hyperparathyroidism of renal origin

== ENCOUNTER → 2022-04-27 | Outpatient (CLI) | payer OTHER | END | disposition home or self-care (01) | LOC: WOUNDCARE 01:17 | PROVIDERS: ATTEND Nurse Practitioner Family | DX: E10.622 Type 1 diabetes mellitus with other skin ulcer (principal); L97.812 Non-pressure chronic ulcer of other part of right lower leg with fat layer exposed; L97.822 Non-pressure chronic ulcer of other part of left lower leg with fat layer exposed; T24.302D Burn of third degree of unspecified site of left lower limb, except ankle and foot, subsequent encounter; T31.0 Burns involving less than 10% of body surface; M79.2 Neuralgia and neuritis, unspecified; E78.00 Pure hypercholesterolemia, unspecified; I10 Essential (primary) hypertension; F17.290 Nicotine dependence, other tobacco product, uncomplicated; Z71.6 Tobacco abuse counseling; X08.8XXD Exposure to other specified smoke, fire and flames, subsequent encounter ==

== ENCOUNTER → 2022-05-04 | Outpatient (CLI) | payer OTHER | END | disposition home or self-care (01) | LOC: WOUNDCARE 02:56 | PROVIDERS: ATTEND Nurse Practitioner Family | DX: E10.622 Type 1 diabetes mellitus with other skin ulcer (principal); L97.812 Non-pressure chronic ulcer of other part of right lower leg with fat layer exposed; L97.822 Non-pressure chronic ulcer of other part of left lower leg with fat layer exposed; T24.302D Burn of third degree of unspecified site of left lower limb, except ankle and foot, subsequent encounter; T31.0 Burns involving less than 10% of body surface; E78.00 Pure hypercholesterolemia, unspecified; I10 Essential (primary) hypertension; M79.2 Neuralgia and neuritis, unspecified; F17.290 Nicotine dependence, other tobacco product, uncomplicated; Z71.6 Tobacco abuse counseling; X08.8XXD Exposure to other specified smoke, fire and flames, subsequent encounter ==

== ENCOUNTER → 2022-05-18 | Outpatient (CLI) | payer OTHER | END | disposition home or self-care (01) | LOC: WOUNDCARE 04:26 | PROVIDERS: ATTEND Nurse Practitioner Family | DX: E10.622 Type 1 diabetes mellitus with other skin ulcer (principal); I83.018 Varicose veins of right lower extremity with ulcer other part of lower leg; L97.812 Non-pressure chronic ulcer of other part of right lower leg with fat layer exposed; I83.028 Varicose veins of left lower extremity with ulcer other part of lower leg; L97.822 Non-pressure chronic ulcer of other part of left lower leg with fat layer exposed; T24.302D Burn of third degree of unspecified site of left lower limb, except ankle and foot, subsequent encounter; T31.0 Burns involving less than 10% of body surface; M79.2 Neuralgia and neuritis, unspecified; Z71.6 Tobacco abuse counseling; F17.290 Nicotine dependence, other tobacco product, uncomplicated; F12.10 Cannabis abuse, uncomplicated; E78.00 Pure hypercholesterolemia, unspecified; I10 Essential (primary) hypertension; X08.8XXD Exposure to other specified smoke, fire and flames, subsequent encounter ==

== ENCOUNTER → 2022-06-01 | Outpatient (CLI) | payer OTHER | END | disposition home or self-care (01) | LOC: WOUNDCARE 02:48 | PROVIDERS: ATTEND Nurse Practitioner Family | DX: T24.302D Burn of third degree of unspecified site of left lower limb, except ankle and foot, subsequent encounter (principal); T31.0 Burns involving less than 10% of body surface; E10.622 Type 1 diabetes mellitus with other skin ulcer; I83.018 Varicose veins of right lower extremity with ulcer other part of lower leg; L97.812 Non-pressure chronic ulcer of other part of right lower leg with fat layer exposed; I83.028 Varicose veins of left lower extremity with ulcer other part of lower leg; L97.822 Non-pressure chronic ulcer of other part of left lower leg with fat layer exposed; M79.2 Neuralgia and neuritis, unspecified; E78.00 Pure hypercholesterolemia, unspecified; I10 Essential (primary) hypertension; F17.290 Nicotine dependence, other tobacco product, uncomplicated; Z71.6 Tobacco abuse counseling; X08.8XXD Exposure to other specified smoke, fire and flames, subsequent encounter ==

== ENCOUNTER → 2023-01-25 | Outpatient (CLI) | payer OTHER ==
[~2023-01-25] MED LIST changes: +BUMETANIDE2 MG PO; +CARVEDILOL12.5 MG PO; +GABAPENTIN100 M2 PO; +LISINOPRIL10 M1 PO; +METHOCARBAMOL750 M1 PO
[2023-01-25 17:57] LABS: BASO % 0.1 % (0.0-1.0); EOS # 0.2 10*3/uL (0.0-0.4); EOS % 3.1 % (1.0-4.0); HEMATOCRIT 25.6 % (42.0-52.0); LYMPH # 1.9 10*3/uL (1.3-4.4); LYMPH % 27.3 % (27.0-41.0); MEAN CELL VOLUME 91.4 fl (80.0-94.0); MEAN CORPUSCULAR HGB 29.6 pg (27.0-31.0); MEAN CORPUSCULAR HGB CONC 32.4 g/dl (33.0-37.0); MEAN PLATELET VOLUME 10.2 fl (9.6-12.3); MONO # 0.6 10*3/uL (0.1-1.0); MONO % 8.4 % (3.0-9.0); NEUT # 4.1 10*3/uL (2.3-7.9); NEUT % 60.8 % (47.0-73.0); PLATELET COUNT AUTOMATED 158 10*3/uL (130-400); RED CELL DISTRI WIDTH 14.5 % (0-14.5); WHITE BLOOD COUNT 6.8 10*3/uL (4.8-10.8)
[2023-01-25 18:53] LABS: POTASSIUM 6.2 mmol/L (3.4-5.1)
== END | disposition home or self-care (01) ==
LOC: LAB 17:38
PROVIDERS: ATTEND Internal Medicine Nephrology
DX: N18.4 Chronic kidney disease, stage 4 (severe) (principal)

== ENCOUNTER → 2023-04-04 | Outpatient (CLI) | payer OTHER | LOC: RAD 16:52 | PROVIDERS: ATTEND Internal Medicine | DX: M79.89 Other specified soft tissue disorders (principal) ==

== ENCOUNTER → 2023-04-24 | Outpatient (CLI) | payer OTHER ==
[~2023-04-24] MED LIST changes: +CALCIUM ACETAT667 M3 PO; +METOPROLOL SUC100 M1 PO; +METOPROLOL SUCC50 M2 PO
[2023-04-24 17:37] LABS: BASO % 0.1 % (0.0-1.0); EOS # 0.2 10*3/uL (0.0-0.4); EOS % 2.5 % (1.0-4.0); HEMATOCRIT 29.9 % (42.0-52.0); LYMPH # 1.8 10*3/uL (1.3-4.4); LYMPH % 26.7 % (27.0-41.0); MEAN CELL VOLUME 91.2 fl (80.0-94.0); MEAN CORPUSCULAR HGB 29.9 pg (27.0-31.0); MEAN CORPUSCULAR HGB CONC 32.8 g/dl (33.0-37.0); MEAN PLATELET VOLUME 9.8 fl (9.6-12.3); MONO # 0.4 10*3/uL (0.1-1.0); MONO % 5.3 % (3.0-9.0); NEUT # 4.4 10*3/uL (2.3-7.9); NEUT % 65.1 % (47.0-73.0); PLATELET COUNT AUTOMATED 176 10*3/uL (130-400); RED BLOOD COUNT 3.28 10*6/uL (4.50-5.90); WHITE BLOOD COUNT 6.8 10*3/uL (4.8-10.8)
[2023-04-25 08:09] LABS: HBSAG Negative (Negative); HEP B CORE AB, IGM Negative (Negative); HEPATITIS C ANTIBODY Non Reactive (Non Reactive)
[2023-04-25 12:07] LABS: ANTI-RNP ANTIBODIES <0.2 AI (0.0-0.9)
[2023-04-25 13:06] LABS: CCP ANTIBODIES IGG/IGA 3 units (0-19)
[2023-04-26 05:07] LABS: LUPUS DRVVT 43.6 sec (0.0-47.0); PTT-LA 41.5 sec (0.0-43.5)
[2023-04-26 10:07] LABS: LUPUS REFLEX INTERPRETATION Comment: (.)
[2023-05-01 21:06] LABS: HLA-B27 ANTIGEN Negative (.)
== END | disposition home or self-care (01) ==
LOC: US 16:00 → LAB 16:42
PROVIDERS: ATTEND Orthopaedic Surgery
DX: M71.21 Synovial cyst of popliteal space [Baker], right knee (principal); M79.604 Pain in right leg; M25.561 Pain in right knee; R53.83 Other fatigue

== ENCOUNTER 2023-05-17 20:14 | Emergency (ER) | payer OTHER ==
[~2023-05-17] VITALS: Ht 180.3 cm; Wt 74.8 kg
[2023-05-17 21:04] LABS: BASO % 0.2 % (0.0-1.0); EOS # 0.2 10*3/uL (0.0-0.4); EOS % 3.4 % (1.0-4.0); HEMATOCRIT 28.5 % (42.0-52.0); LYMPH # 1.2 10*3/uL (1.3-4.4); LYMPH % 21.8 % (27.0-41.0); MEAN CELL VOLUME 94.4 fl (80.0-94.0); MEAN CORPUSCULAR HGB 29.8 pg (27.0-31.0); MEAN CORPUSCULAR HGB CONC 31.6 g/dl (33.0-37.0); MEAN PLATELET VOLUME 10.5 fl (9.6-12.3); MONO # 0.4 10*3/uL (0.1-1.0); MONO % 6.3 % (3.0-9.0); NEUT # 3.8 10*3/uL (2.3-7.9); NEUT % 68.1 % (47.0-73.0); PLATELET COUNT AUTOMATED 141 10*3/uL (130-400); RED BLOOD COUNT 3.02 10*6/uL (4.50-5.90); RED CELL DISTRI WIDTH 15.1 % (0-14.5); WHITE BLOOD COUNT 5.5 10*3/uL (4.8-10.8)
[2023-05-17 21:18] LABS: ACT PARTIAL THROMBO TIME 30.8 SECONDS (20.0-32.1)
[2023-05-17 21:25] LABS: ALKALINE PHOSPHATASE 87 U/L (46-116); BUN 51 mg/dl (9-23); CHLORIDE 111 mmol/L (98-107); LIPASE 26 U/L (12-53); POTASSIUM 4.7 mmol/L (3.4-5.1); SGPT/ALT 70 U/L (5-49)
== END 2023-05-17 23:50 | disposition home or self-care (01) ==
LOC: ED 20:14
PROVIDERS: Internal Medicine
DX: E11.649 Type 2 diabetes mellitus with hypoglycemia without coma (principal); I10 Essential (primary) hypertension; E78.00 Pure hypercholesterolemia, unspecified; E11.40 Type 2 diabetes mellitus with diabetic neuropathy, unspecified; Z96.41 Presence of insulin pump (external) (internal); Z90.89 Acquired absence of other organs; Z98.890 Other specified postprocedural states; F10.10 Alcohol abuse, uncomplicated; F17.200 Nicotine dependence, unspecified, uncomplicated; F12.10 Cannabis abuse, uncomplicated; F11.10 Opioid abuse, uncomplicated; R10.2 Pelvic and perineal pain

== ENCOUNTER → 2023-08-03 | Outpatient (CLI) | payer OTHER ==
[2023-08-03 15:51] LABS: BASO % 0.1 % (0.0-1.0); EOS # 0.1 10*3/uL (0.0-0.4); HEMATOCRIT 27.1 % (42.0-52.0); LYMPH # 1.1 10*3/uL (1.3-4.4); LYMPH % 13.7 % (27.0-41.0); MEAN CELL VOLUME 92.5 fl (80.0-94.0); MEAN CORPUSCULAR HGB CONC 32.5 g/dl (33.0-37.0); MEAN PLATELET VOLUME 10.3 fl (9.6-12.3); MONO # 0.6 10*3/uL (0.1-1.0); NEUT # 6.4 10*3/uL (2.3-7.9); PLATELET COUNT AUTOMATED 149 10*3/uL (130-400); RED BLOOD COUNT 2.93 10*6/uL (4.50-5.90); RED CELL DISTRI WIDTH 13.7 % (0-14.5); WHITE BLOOD COUNT 8.2 10*3/uL (4.8-10.8)
[2023-08-03 17:05] LABS: BILIRUBIN Negative (Negative); BLOOD Negative (Negative); CLARITY Clear (Clear); COLOR Yellow (Yellow); GLUCOSE 2+ (Negative); KETONE Negative (Negative); LEUKO ESTERASE Negative (Negative); NITRITE Negative (Negative); PH 5.5 (4.5-8.0); SPECIFIC GRAVITY 1.015 (1.001-1.030); UROBILINOGEN 0.2 E.U./dl (0.0-1.0)
[2023-08-03 17:17] LABS: BACTERIA 1+
== END | disposition home or self-care (01) ==
LOC: LAB 15:39
PROVIDERS: Nurse Practitioner Family; ATTEND Internal Medicine Nephrology
DX: N18.4 Chronic kidney disease, stage 4 (severe) (principal)

== ENCOUNTER 2023-09-20 19:17 | Inpatient (IN) | payer OTHER ==
[~2023-09-20] VITALS: Ht 180.3 cm; Wt 78.1 kg
[2023-09-20 19:41] VITALS: BP 150/90
[2023-09-20 20:31] LABS: BASO % 0.1 % (0.0-1.0); EOS # 0.1 10*3/uL (0.0-0.4); EOS % 0.6 % (1.0-4.0); HEMATOCRIT 30.6 % (42.0-52.0); LYMPH # 1.2 10*3/uL (1.3-4.4); LYMPH % 13.1 % (27.0-41.0); MEAN CELL VOLUME 90.8 fl (80.0-94.0); MEAN CORPUSCULAR HGB 29.7 pg (27.0-31.0); MEAN CORPUSCULAR HGB CONC 32.7 g/dl (33.0-37.0); MEAN PLATELET VOLUME 10.8 fl (9.6-12.3); MONO # 0.6 10*3/uL (0.1-1.0); MONO % 6.1 % (3.0-9.0); NEUT # 7.2 10*3/uL (2.3-7.9); NEUT % 79.9 % (47.0-73.0); PLATELET COUNT AUTOMATED 171 10*3/uL (130-400); RED BLOOD COUNT 3.37 10*6/uL (4.50-5.90); RED CELL DISTRI WIDTH 13.5 % (0-14.5)
[2023-09-20 20:42] LABS: ACT PARTIAL THROMBO TIME 31.2 SECONDS (20.0-32.1)
[2023-09-20 20:54] LABS: ALKALINE PHOSPHATASE 107 U/L (46-116); BUN 79 mg/dl (9-23); CHLORIDE 100 mmol/L (98-107); CPK 154 U/L (34-171); LIPASE 29 U/L (12-53); POTASSIUM 3.4 mmol/L (3.4-5.1); SGPT/ALT 27 U/L (5-49); TOTAL PROTEIN 7.2 gm/dL (6.0-8.0)
[2023-09-20] MEDS ORDERED: Ondansetron Hydrochloride 4 MG/2 ML VIAL IV ONE ×2 (21:30→23:30)
[2023-09-20 23:31] LABS: BILIRUBIN Negative (Negative); BLOOD Trace-Intact (Negative); CLARITY Clear (Clear); COLOR Yellow (Yellow); GLUCOSE Negative (Negative); KETONE Negative (Negative); LEUKO ESTERASE Trace (Negative); NITRITE Negative (Negative); SPECIFIC GRAVITY 1.015 (1.001-1.030); UROBILINOGEN 0.2 E.U./dl (0.0-1.0)
[2023-09-20 23:38] LABS: BACTERIA 2+; WBC 16-20 wbc/hpf (0-5)
[2023-09-20] MEDS ORDERED: Ceftriaxone Sodium 1 GM/10 ML SYR IV ONE (23:45)
[2023-09-20] MEDS ORDERED: SODIUM CHLORIDE 0.9% 1,000 ML IV SCH (23:45)
[2023-09-21] VITALS (7 sets, daily range): BP systolic 146–181; BP diastolic 71–90
[2023-09-21] MEDS ORDERED: METHOCARBAMOL 750 MG TAB PO PRN (00:15)
[2023-09-21] MEDS ORDERED: DEXTROSE 10 % IN WATER 250 ML IV PRN (00:20)
[2023-09-21] MEDS ORDERED: SODIUM CHLORIDE 0.9% 1,000 ML IV SCH (00:20)
[2023-09-21] MEDS ORDERED: SUBOXONE 8 MG-1 EACH SL (01:01)
[2023-09-21] MEDS ORDERED: SODIUM BICARBO650 MG PO (01:02)
[2023-09-21] MEDS ORDERED: BUMETANIDE2 MG PO (01:03)
[2023-09-21] MEDS ORDERED: DEXCOM G61 EACH MC (01:05)
[2023-09-21] MEDS ORDERED: HUMULIN R100 UNIT/1 SC (01:06)
[2023-09-21] MEDS ORDERED: FEROSUL325 M1 PO (01:07)
[2023-09-21] MEDS ORDERED: hydrALAZINE hydrochloride 50 MG TAB PO ONE (01:55)
[2023-09-21] MEDS ORDERED: Metoclopramide Hydrochloride 10 MG/2 ML AMP IV PRN (01:55)
[2023-09-21 05:19] LABS: POTASSIUM 3.3 mmol/L (3.4-5.1)
[2023-09-21 06:21] LABS: BASO % 0.1 % (0.0-1.0); EOS # 0.1 10*3/uL (0.0-0.4); HEMATOCRIT 27.6 % (42.0-52.0); LYMPH # 1.7 10*3/uL (1.3-4.4); LYMPH % 18.6 % (27.0-41.0); MEAN CORPUSCULAR HGB CONC 33.7 g/dl (33.0-37.0); MEAN PLATELET VOLUME 11.6 fl (9.6-12.3); MONO # 0.6 10*3/uL (0.1-1.0); MONO % 6.8 % (3.0-9.0); NEUT # 6.6 10*3/uL (2.3-7.9); NEUT % 73.3 % (47.0-73.0); PLATELET COUNT AUTOMATED 173 10*3/uL (130-400); RED CELL DISTRI WIDTH 13.5 % (0-14.5); WHITE BLOOD COUNT 8.9 10*3/uL (4.8-10.8)
[2023-09-21] MEDS ORDERED: INSULIN LISPRO 1 UNIT/0.01 ML SQ SCH (07:30)
[2023-09-21] MEDS ORDERED: BUPRENORPHINE HCL/NALOXONE 8 MG-2 MG SL TABLET SL SCH ×2 (08:00→10:00)
[2023-09-21] MEDS ORDERED: BUPRENORPHINE HCL/NALOXONE 2 MG/0.5 MG SL TAB SL SCH (08:10)
[2023-09-21] MEDS ORDERED: hydrALAZINE hydrochloride 50 MG TAB PO SCH (10:00)
[2023-09-21] MEDS ORDERED: METOPROLOL SUCCINATE XR 100 MG TAB PO SCH (10:00)
[2023-09-21] MEDS ORDERED: Ondansetron Hydrochloride 4 MG/2 ML VIAL IV PRN (12:25)
[2023-09-21] MEDS ORDERED: Metoclopramide Hydrochloride 10 MG/2 ML AMP IV SCH (14:00)
[2023-09-21] MEDS ORDERED: POTASSIUM CHLORIDE 20 MEQ TAB PO ONE (14:45)
[2023-09-21 16:07] LABS: POTASSIUM 3.3 mmol/L (3.4-5.1)
[2023-09-21] MEDS ORDERED: GABAPENTIN 100 MG CAP PO SCH (22:00)
[2023-09-21] MEDS ORDERED: Ceftriaxone Sodium 1 GM,IV 1 EA in SYRINGE INFUSION 10 ML IV SCH (22:00)
[2023-09-22] VITALS: BP 147/77
[2023-09-22 06:00] LABS: BASO % 0.1 % (0.0-1.0); EOS # 0.1 10*3/uL (0.0-0.4); EOS % 1.7 % (1.0-4.0); HEMATOCRIT 27.1 % (42.0-52.0); LYMPH # 1.5 10*3/uL (1.3-4.4); LYMPH % 20.1 % (27.0-41.0); MEAN CELL VOLUME 88.9 fl (80.0-94.0); MEAN CORPUSCULAR HGB 29.8 pg (27.0-31.0); MEAN CORPUSCULAR HGB CONC 33.6 g/dl (33.0-37.0); MEAN PLATELET VOLUME 11.1 fl (9.6-12.3); MONO # 0.6 10*3/uL (0.1-1.0); MONO % 8.1 % (3.0-9.0); NEUT # 5.2 10*3/uL (2.3-7.9); NEUT % 69.7 % (47.0-73.0); PLATELET COUNT AUTOMATED 160 10*3/uL (130-400); RED BLOOD COUNT 3.05 10*6/uL (4.50-5.90); RED CELL DISTRI WIDTH 13.3 % (0-14.5); WHITE BLOOD COUNT 7.5 10*3/uL (4.8-10.8)
[2023-09-22 06:16] LABS: POTASSIUM 3.5 mmol/L (3.4-5.1)
[2023-09-22 08:00] VITALS: BP 153/68
[2023-09-22] MEDS ORDERED: BUMETANIDE 1 MG TAB PO SCH (10:00)
[2023-09-22] MEDS ORDERED: Metoclopramide Hydrochloride 10 MG/2 ML AMP IV ONE (10:00)
[2023-09-22] MEDS ORDERED: diphenhydrAMINE hydrochloride 50 MG/ML VIAL IV PRN (10:00)
[2023-09-22 12:00] VITALS: BP 146/60
[2023-09-22] MEDS ORDERED: Metoclopramide Hydrochloride 10 MG/2 ML AMP IV SCH (14:00)
[2023-09-22] MEDS ORDERED: POTASSIUM CHLORIDE 20 MEQ TAB PO PRN (15:40)
[2023-09-22] MEDS ORDERED: INSULIN REGULAR IN 0.9 % NACL 100 ML IV SCH (15:40)
[2023-09-22] MEDS ORDERED: POTASSIUM CHLORIDE 20 MEQ/100 ML BAG IV PRN (15:40)
[2023-09-22 16:00] VITALS: BP 184/90
[2023-09-22 16:21] LABS: POTASSIUM 3.4 mmol/L (3.4-5.1)
[2023-09-22] MEDS ORDERED: diphenhydrAMINE hydrochloride 25 MG CAP PO SCH (18:00)
[2023-09-22 20:00] VITALS: BP 180/94
[2023-09-22] MEDS ORDERED: amLODIPine besylate 5 MG TAB PO SCH (20:25)
[2023-09-23] VITALS: BP 161/88
[2023-09-23 05:35] LABS: POTASSIUM 3.7 mmol/L (3.4-5.1)
[2023-09-23 06:16] LABS: BASO % 0.3 % (0.0-1.0); EOS # 0.3 10*3/uL (0.0-0.4); HEMATOCRIT 26.2 % (42.0-52.0); LYMPH # 2.3 10*3/uL (1.3-4.4); LYMPH % 30.3 % (27.0-41.0); MEAN CORPUSCULAR HGB 29.9 pg (27.0-31.0); MEAN CORPUSCULAR HGB CONC 33.2 g/dl (33.0-37.0); MEAN PLATELET VOLUME 11.3 fl (9.6-12.3); MONO # 0.8 10*3/uL (0.1-1.0); MONO % 10.7 % (3.0-9.0); NEUT # 4.1 10*3/uL (2.3-7.9); NEUT % 54.4 % (47.0-73.0); PLATELET COUNT AUTOMATED 150 10*3/uL (130-400); RED BLOOD COUNT 2.91 10*6/uL (4.50-5.90); RED CELL DISTRI WIDTH 13.2 % (0-14.5); WHITE BLOOD COUNT 7.6 10*3/uL (4.8-10.8)
[2023-09-23 08:00] VITALS: BP 149/69
[2023-09-23 12:00] VITALS: BP 172/83
[2023-09-23] MEDS ORDERED: INSULIN REGULAR, HUMAN 1 UNIT/0.01 ML SC SCH (12:15)
[2023-09-23] MEDS ORDERED: BUMETANIDE 1 MG TAB PO SCH (16:30)
[2023-09-23] MEDS ORDERED: CALCIUM ACETATE 667 MG CAP PO SCH (17:00)
== END 2023-09-23 15:25 | disposition left against medical advice (07) | DRG 48 ==
LOC: ED 19:17 → ICCU 23:38 → EDHOLD 23:38 → ICCU 23:46
PROVIDERS: Nurse Practitioner Family; ADMIT Internal Medicine; ATTEND Internal Medicine
DX: E10.43 Type 1 diabetes mellitus with diabetic autonomic (poly)neuropathy (principal); N17.0 Acute kidney failure with tubular necrosis; I12.0 Hypertensive chronic kidney disease with stage 5 chronic kidney disease or end stage renal disease; K31.84 Gastroparesis; N39.0 Urinary tract infection, site not specified; E86.0 Dehydration; G89.29 Other chronic pain; M54.9 Dorsalgia, unspecified; E10.42 Type 1 diabetes mellitus with diabetic polyneuropathy; S61.502A Unspecified open wound of left wrist, initial encounter; E10.22 Type 1 diabetes mellitus with diabetic chronic kidney disease; E10.65 Type 1 diabetes mellitus with hyperglycemia; F12.10 Cannabis abuse, uncomplicated; Z53.29 Procedure and treatment not carried out because of patient's decision for other reasons; E87.6 Hypokalemia; N18.5 Chronic kidney disease, stage 5; I95.9 Hypotension, unspecified; D64.9 Anemia, unspecified; M89.8X9 Other specified disorders of bone, unspecified site

== ENCOUNTER → 2023-10-11 | Outpatient (CLI) | payer OTHER ==
[~2023-10-11] MED LIST changes: +DEXCOM G61 EACH MC; +FEROSUL325 M1 PO; +HUMULIN R100 UNIT/1 SC; +SODIUM BICARBO650 MG PO
[2023-10-11 18:29] LABS: POTASSIUM 4.2 mmol/L (3.4-5.1)
== END | disposition home or self-care (01) ==
LOC: LAB 17:10
PROVIDERS: Nurse Practitioner Family; ATTEND Internal Medicine Nephrology
DX: N18.4 Chronic kidney disease, stage 4 (severe) (principal)

== ENCOUNTER → 2024-02-21 | Outpatient (CLI) | payer OTHER ==
[~2024-02-21] MED LIST changes: +AURYXIA210 MG PO; +BUPRENORPHINE-1 EACH SL; +CYMBALTA30 MG PO; +IRON325 M1 PO; +ONDANSETRON4 MG SL; +PEPCID40 MG PO; +VISTARIL25 MG PO
[2024-02-21 16:04] LABS: BASO % 0.1 % (0.0-1.0); EOS # 0.2 10*3/uL (0.0-0.4); EOS % 2.4 % (1.0-4.0); HEMATOCRIT 30.2 % (42.0-52.0); LYMPH # 1.3 10*3/uL (1.3-4.4); LYMPH % 15.3 % (27.0-41.0); MEAN CELL VOLUME 90.7 fl (80.0-94.0); MEAN CORPUSCULAR HGB 29.7 pg (27.0-31.0); MEAN CORPUSCULAR HGB CONC 32.8 g/dl (33.0-37.0); MEAN PLATELET VOLUME 9.9 fl (9.6-12.3); MONO # 0.7 10*3/uL (0.1-1.0); MONO % 8.8 % (3.0-9.0); NEUT % 73.2 % (47.0-73.0); PLATELET COUNT AUTOMATED 164 10*3/uL (130-400); RED BLOOD COUNT 3.33 10*6/uL (4.50-5.90); RED CELL DISTRI WIDTH 13.9 % (0-14.5); WHITE BLOOD COUNT 8.2 10*3/uL (4.8-10.8)
[2024-02-21 16:21] LABS: POTASSIUM 4.4 mmol/L (3.4-5.1); TOTAL PROTEIN 6.6 gm/dL (6.0-8.0)
== END | disposition home or self-care (01) ==
LOC: WOUNDCARE 14:14 → LAB 14:14
PROVIDERS: ATTEND Nurse Practitioner Family
DX: E10.621 Type 1 diabetes mellitus with foot ulcer (principal); L97.422 Non-pressure chronic ulcer of left heel and midfoot with fat layer exposed; E10.622 Type 1 diabetes mellitus with other skin ulcer; L97.821 Non-pressure chronic ulcer of other part of left lower leg limited to breakdown of skin; I87.2 Venous insufficiency (chronic) (peripheral); E10.22 Type 1 diabetes mellitus with diabetic chronic kidney disease; I12.9 Hypertensive chronic kidney disease with stage 1 through stage 4 chronic kidney disease, or unspecified chronic kidney disease; N18.9 Chronic kidney disease, unspecified; E10.10 Type 1 diabetes mellitus with ketoacidosis without coma; E78.00 Pure hypercholesterolemia, unspecified; F17.210 Nicotine dependence, cigarettes, uncomplicated; Z79.899 Other long term (current) drug therapy

== ENCOUNTER 2024-03-12 18:43 | Inpatient (IN) | payer OTHER ==
[~2024-03-12] VITALS: Ht 180.3 cm; Wt 83.3 kg
[2024-03-12 19:01] VITALS: BP 121/65
[2024-03-12 20:19] LABS: BASO % 0.3 % (0.0-1.0); EOS # 0.4 10*3/uL (0.0-0.4); EOS % 5.1 % (1.0-4.0); HEMATOCRIT 28.7 % (42.0-52.0); LYMPH # 1.6 10*3/uL (1.3-4.4); MEAN CORPUSCULAR HGB 30.1 pg (27.0-31.0); MEAN CORPUSCULAR HGB CONC 32.8 g/dl (33.0-37.0); MEAN PLATELET VOLUME 10.8 fl (9.6-12.3); MONO # 0.7 10*3/uL (0.1-1.0); MONO % 9.3 % (3.0-9.0); NEUT # 4.4 10*3/uL (2.3-7.9); PLATELET COUNT AUTOMATED 150 10*3/uL (130-400); RED BLOOD COUNT 3.12 10*6/uL (4.50-5.90); RED CELL DISTRI WIDTH 14.4 % (0-14.5)
[2024-03-12 20:36] LABS: POTASSIUM 4.3 mmol/L (3.4-5.1); TOTAL PROTEIN 6.2 gm/dL (6.0-8.0)
[2024-03-12] MEDS ORDERED: Vancomycin Hydrochloride 250 ML IV ONE (21:10)
[2024-03-12] MEDS ORDERED: Cefepime Hydrochloride 1 GM in SODIUM CHLORIDE 0.9% 50 ML IV ONE (21:10)
[2024-03-12] MEDS ORDERED: SODIUM CHLORIDE 0.9% 1,000 ML IV ONE (23:00)
[2024-03-13 03:23] VITALS: BP 142/78
[2024-03-13 05:59] VITALS: BP 127/71
[2024-03-13 09:38] VITALS: BP 128/82
[2024-03-13] MEDS ORDERED: METHOCARBAMOL 750 MG TAB PO PRN (11:05)
[2024-03-13] MEDS ORDERED: INSULIN REGULAR, HUMAN 1 UNIT/0.01 ML SC SCH (11:05)
[2024-03-13] MEDS ORDERED: hydrOXYzine pamoate 25 MG CAP PO PRN (11:05)
[2024-03-13] MEDS ORDERED: Ceftriaxone Sodium 2 GM,IV 1 EA in SYRINGE INFUSION 20 ML IV SCH (11:30)
[2024-03-13] MEDS ORDERED: GABAPENTIN 800 MG TAB PO SCH (14:00)
[2024-03-13 15:24] VITALS: BP 132/72
[2024-03-13] MEDS ORDERED: SODIUM BICARBONATE 650 MG TAB PO SCH (16:00)
[2024-03-13 16:42] VITALS: BP 167/86
[2024-03-13] MEDS ORDERED: Sevelamer Hydrochloride 800 MG TAB PO SCH (17:00)
[2024-03-13] MEDS ORDERED: METOPROLOL SUCCINATE XR 50 MG TAB PO SCH (17:10)
[2024-03-13] MEDS ORDERED: CYCLOBENZAPRINE10 MG PO (19:11)
[2024-03-13] MEDS ORDERED: Nicotine 21 MG PATCH T SCH (19:50)
[2024-03-13 20:00] VITALS: BP 125/58
[2024-03-13] MEDS ORDERED: BUPRENORPHINE HCL/NALOXONE 2 MG/0.5 MG SL TAB SL SCH (22:00)
[2024-03-13] MEDS ORDERED: GABAPENTIN 300 MG CAP PO SCH (22:00)
[2024-03-13] MEDS ORDERED: VANCOMYCIN/WATER FOR INJ (PEG) 250 ML IV SCH (22:00)
[2024-03-13] MEDS ORDERED: hydrALAZINE hydrochloride 50 MG TAB PO SCH (22:00)
[2024-03-13] MEDS ORDERED: Duloxetine Hydrochloride 30 MG CAP PO SCH (22:00)
[2024-03-14] VITALS: BP 130/60
[2024-03-14 06:24] LABS: BASO % 0.4 % (0.0-1.0); EOS # 0.4 10*3/uL (0.0-0.4); LYMPH # 1.8 10*3/uL (1.3-4.4); LYMPH % 23.7 % (27.0-41.0); MEAN CELL VOLUME 89.5 fl (80.0-94.0); MEAN CORPUSCULAR HGB CONC 33.6 g/dl (33.0-37.0); MONO # 0.6 10*3/uL (0.1-1.0); MONO % 8.2 % (3.0-9.0); NEUT # 4.7 10*3/uL (2.3-7.9); NEUT % 62.3 % (47.0-73.0); PLATELET COUNT AUTOMATED 150 10*3/uL (130-400); RED BLOOD COUNT 3.13 10*6/uL (4.50-5.90); RED CELL DISTRI WIDTH 14.4 % (0-14.5); WHITE BLOOD COUNT 7.6 10*3/uL (4.8-10.8)
[2024-03-14 08:00] VITALS: BP 132/71
[2024-03-14] MEDS ORDERED: BUMETANIDE 1 MG/4 ML VIAL IV ONE (08:05)
[2024-03-14 08:32] LABS: POTASSIUM 4.2 mmol/L (3.4-5.1)
[2024-03-14] MEDS ORDERED: BUMETANIDE IV SCH (09:00)
[2024-03-14] MEDS ORDERED: INFUSION IV SCH (09:00)
[2024-03-14] MEDS ORDERED: BUMETANIDE 1 MG TAB PO SCH (10:00)
[2024-03-14] MEDS ORDERED: CEFEPIME HCL IN DEXTROSE 5 % 50 ML IV SCH (10:00)
[2024-03-14] MEDS ORDERED: METOPROLOL SUCCINATE XR 50 MG TAB PO SCH (10:00)
[2024-03-14 10:53] LABS: BILIRUBIN Negative (Negative); BLOOD Negative (Negative); CLARITY Clear (Clear); COLOR Yellow (Yellow); GLUCOSE Negative (Negative); KETONE Negative (Negative); LEUKO ESTERASE Negative (Negative); NITRITE Negative (Negative); UROBILINOGEN 0.2 E.U./dl (0.0-1.0)
[2024-03-14 11:41] LABS: EPITHELIAL CELLS 0-2; RBC 0-2 rbc/hpf (0-2)
[2024-03-14 12:00] VITALS: BP 156/81
[2024-03-14] MEDS ORDERED: LEPTOSPERMUM HONEY 0.5 OZ TUBE T ONE (15:08)
[2024-03-14] MEDS ORDERED: FOAM BANDAGE 5X5 T ONE (15:09)
[2024-03-14] MEDS ORDERED: METHOCARBAMOL 750 MG TAB PO PRN (15:40)
[2024-03-14 15:52] VITALS: BP 166/81
[2024-03-14] MEDS ORDERED: SODIUM BICARBONATE 650 MG TAB PO SCH (17:00)
[2024-03-14 20:00] VITALS: BP 172/75
[2024-03-15] VITALS: BP 179/73
[2024-03-15 06:39] LABS: BASO % 0.3 % (0.0-1.0); EOS # 0.3 10*3/uL (0.0-0.4); EOS % 3.9 % (1.0-4.0); HEMATOCRIT 25.6 % (42.0-52.0); LYMPH # 1.6 10*3/uL (1.3-4.4); LYMPH % 21.9 % (27.0-41.0); MEAN CELL VOLUME 87.1 fl (80.0-94.0); MEAN CORPUSCULAR HGB 30.6 pg (27.0-31.0); MEAN CORPUSCULAR HGB CONC 35.2 g/dl (33.0-37.0); MEAN PLATELET VOLUME 11.1 fl (9.6-12.3); MONO # 0.6 10*3/uL (0.1-1.0); MONO % 7.7 % (3.0-9.0); NEUT # 4.7 10*3/uL (2.3-7.9); NEUT % 66.1 % (47.0-73.0); PLATELET COUNT AUTOMATED 151 10*3/uL (130-400); RED BLOOD COUNT 2.94 10*6/uL (4.50-5.90); WHITE BLOOD COUNT 7.1 10*3/uL (4.8-10.8)
[2024-03-15 08:00] VITALS: BP 176/83
[2024-03-15] MEDS ORDERED: Ondansetron Hydrochloride 4 MG/2 ML VIAL IV PRN (10:00)
[2024-03-15 14:20] VITALS: BP 194/87
[2024-03-15 14:25] VITALS: BP 194/98
[2024-03-15 16:00] VITALS: BP 175/85
[2024-03-15 20:00] VITALS: BP 161/84
[2024-03-15] MEDS ORDERED: hydrALAZINE hydrochloride 50 MG TAB PO SCH (22:00)
[2024-03-16] VITALS: BP 168/89
[2024-03-16 06:35] LABS: BASO % 0.5 % (0.0-1.0); EOS # 0.3 10*3/uL (0.0-0.4); EOS % 5.1 % (1.0-4.0); HEMATOCRIT 26.5 % (42.0-52.0); LYMPH # 1.7 10*3/uL (1.3-4.4); LYMPH % 26.4 % (27.0-41.0); MEAN CELL VOLUME 86.3 fl (80.0-94.0); MEAN CORPUSCULAR HGB 29.6 pg (27.0-31.0); MEAN CORPUSCULAR HGB CONC 34.3 g/dl (33.0-37.0); MONO # 0.7 10*3/uL (0.1-1.0); MONO % 10.9 % (3.0-9.0); NEUT # 3.7 10*3/uL (2.3-7.9); NEUT % 56.9 % (47.0-73.0); PLATELET COUNT AUTOMATED 141 10*3/uL (130-400); RED BLOOD COUNT 3.07 10*6/uL (4.50-5.90); WHITE BLOOD COUNT 6.5 10*3/uL (4.8-10.8)
[2024-03-16] MEDS ORDERED: MED. FROM HOME 1 EACH EA PO SCH (08:00)
[2024-03-16] MEDS ORDERED: FOAM BANDAGE 5X5 T ONE (09:12)
[2024-03-16] MEDS ORDERED: LEPTOSPERMUM HONEY 0.5 OZ TUBE T ONE (09:12)
[2024-03-16 09:36] LABS: POTASSIUM 3.8 mmol/L (3.4-5.1)
[2024-03-16] MEDS ORDERED: CLINDAMYCIN PHOSPHATE T SCH (10:00)
[2024-03-16 12:00] VITALS: BP 188/90
[2024-03-16] MEDS ORDERED: ALGINATE DRESSING/CME-CELL 4X4 1 EACH BANDAGE T ONE (12:20)
[2024-03-16 15:39] VITALS: BP 149/70
[2024-03-16 20:00] VITALS: BP 137/68
[2024-03-17] VITALS: BP 181/85
[2024-03-17 07:19] LABS: POTASSIUM 3.6 mmol/L (3.4-5.1)
[2024-03-17 08:00] VITALS: BP 158/78
[2024-03-17] MEDS ORDERED: Clindamycin Phosphate 50 ML IV SCH (10:00)
[2024-03-17 12:00] VITALS: BP 147/75
[2024-03-17 15:49] VITALS: BP 138/74
[2024-03-17 20:00] VITALS: BP 147/74
[2024-03-17] MEDS ORDERED: CEFEPIME HCL IN DEXTROSE 5 % 50 ML IV SCH (21:05)
[2024-03-18] VITALS: BP 134/62
[2024-03-18 06:13] LABS: BASO % 0.5 % (0.0-1.0); EOS # 0.4 10*3/uL (0.0-0.4); EOS % 5.9 % (1.0-4.0); LYMPH # 1.7 10*3/uL (1.3-4.4); LYMPH % 25.9 % (27.0-41.0); MEAN CELL VOLUME 89.1 fl (80.0-94.0); MEAN CORPUSCULAR HGB 29.4 pg (27.0-31.0); MEAN PLATELET VOLUME 11.2 fl (9.6-12.3); MONO # 0.7 10*3/uL (0.1-1.0); MONO % 10.1 % (3.0-9.0); NEUT # 3.8 10*3/uL (2.3-7.9); NEUT % 57.3 % (47.0-73.0); PLATELET COUNT AUTOMATED 152 10*3/uL (130-400); RED BLOOD COUNT 3.03 10*6/uL (4.50-5.90); RED CELL DISTRI WIDTH 13.8 % (0-14.5); WHITE BLOOD COUNT 6.7 10*3/uL (4.8-10.8)
[2024-03-18 08:00] VITALS: BP 160/70
[2024-03-18] MEDS ORDERED: CLEOCIN HCL300 MG PO (08:33)
[2024-03-18] MEDS ORDERED: cloNIDine Hydrochloride 0.1 MG TAB PO ONE (12:55)
[2024-03-18] MEDS ORDERED: CEPHALEXIN500 M1 PO (18:20)
== END 2024-03-18 14:15 | disposition home or self-care (01) | DRG 383 ==
LOC: ED 18:43 → 4E 03-13 04:01 → EDHOLD 03-13 04:01 → 4E 03-13 14:32
PROVIDERS: Internal Medicine; Internal Medicine Infectious Disease; Nurse Practitioner Family; ADMIT Internal Medicine; ATTEND Internal Medicine
DX: L03.116 Cellulitis of left lower limb (principal); N17.9 Acute kidney failure, unspecified; F33.1 Major depressive disorder, recurrent, moderate; D63.1 Anemia in chronic kidney disease; L89.629 Pressure ulcer of left heel, unspecified stage; N39.0 Urinary tract infection, site not specified; L03.115 Cellulitis of right lower limb; G89.4 Chronic pain syndrome; E10.22 Type 1 diabetes mellitus with diabetic chronic kidney disease; F41.1 Generalized anxiety disorder; E10.622 Type 1 diabetes mellitus with other skin ulcer; B95.61 Methicillin susceptible Staphylococcus aureus infection as the cause of diseases classified elsewhere; E10.42 Type 1 diabetes mellitus with diabetic polyneuropathy; F17.210 Nicotine dependence, cigarettes, uncomplicated; M89.8X8 Other specified disorders of bone, other site; N18.4 Chronic kidney disease, stage 4 (severe); E10.21 Type 1 diabetes mellitus with diabetic nephropathy; I89.0 Lymphedema, not elsewhere classified; I12.9 Hypertensive chronic kidney disease with stage 1 through stage 4 chronic kidney disease, or unspecified chronic kidney disease; Z91.148 Patient's other noncompliance with medication regimen for other reason; E86.0 Dehydration; Z79.899 Other long term (current) drug therapy; Z79.01 Long term (current) use of anticoagulants; Z79.2 Long term (current) use of antibiotics; Z83.3 Family history of diabetes mellitus; Z82.5 Family history of asthma and other chronic lower respiratory diseases; Z82.49 Family history of ischemic heart disease and other diseases of the circulatory system; Z99.2 Dependence on renal dialysis

== ENCOUNTER → 2024-08-06 | Outpatient (CLI) | payer OTHER ==
[~2024-08-06] MED LIST changes: +CEPHALEXIN500 M1 PO; +CYCLOBENZAPRINE10 MG PO
[2024-08-06 17:00] LABS: BASO % 0.3 % (0.0-1.0); EOS # 0.5 10*3/uL (0.0-0.4); HEMATOCRIT 28.2 % (42.0-52.0); MEAN CELL VOLUME 89.8 fl (80.0-94.0); MEAN CORPUSCULAR HGB 29.6 pg (27.0-31.0); MEAN PLATELET VOLUME 11.4 fl (9.6-12.3); MONO # 0.6 10*3/uL (0.1-1.0); MONO % 8.1 % (3.0-9.0); NEUT # 4.5 10*3/uL (2.3-7.9); NEUT % 60.1 % (47.0-73.0); PLATELET COUNT AUTOMATED 118 10*3/uL (130-400); RED BLOOD COUNT 3.14 10*6/uL (4.50-5.90); RED CELL DISTRI WIDTH 15.4 % (0-14.5); WHITE BLOOD COUNT 7.5 10*3/uL (4.8-10.8)
[2024-08-06 17:00] LABS: BILIRUBIN Negative (Negative); BLOOD Negative (Negative); CLARITY Clear (Clear); COLOR Yellow (Yellow); GLUCOSE Negative (Negative); KETONE Negative (Negative); LEUKO ESTERASE Trace (Negative); NITRITE Negative (Negative); UROBILINOGEN 0.2 E.U./dl (0.0-1.0)
[2024-08-06 17:10] LABS: BACTERIA TRACE
[2024-08-06 17:24] LABS: VITAMIN D, 25-HYDROXY 9.4 ng/mL (30-100)
[2024-08-06 17:32] LABS: POTASSIUM 3.9 mmol/L (3.4-5.1)
== END | disposition home or self-care (01) ==
LOC: LAB 16:25
PROVIDERS: ATTEND Nurse Practitioner Family
DX: N25.81 Secondary hyperparathyroidism of renal origin (principal); E55.9 Vitamin D deficiency, unspecified; N18.4 Chronic kidney disease, stage 4 (severe); D63.1 Anemia in chronic kidney disease

== ENCOUNTER 2025-03-09 05:54 | Emergency (ER) | payer MEDICARE, MEDICAID ==
[~2025-03-09] VITALS: Ht 180.3 cm; Wt 79.4 kg
[~2025-03-09 05:54] MED LIST changes: +BUPROPION HYDR100 M3 PO; +OMEPRAZOLE40 MG PO; +OMNICEF300 MG PO; +RENVELA800 MG PO; +ROPINIROLE HYDRO2 M2 PO; +VANCOMYCIN HCL250 MG PO
[2025-03-09] MEDS ORDERED: Tdap Vaccine 0.5 ML SYR (Adult Vaccine) IM ONE (06:15)
[2025-03-09] MEDS ORDERED: Lidocaine Hydrochloride 30 ML VIAL SC ONE (06:15)
[2025-03-09] MEDS ORDERED: CEPHALEXIN 500 MG CAP PO ONE (06:30)
[2025-03-09] MEDS ORDERED: Lidocaine Hydrochloride 2 ML IV ONE (06:39)
[2025-03-09] MEDS ORDERED: LIDOCAINE IV ONE (06:41)
[2025-03-09] MEDS ORDERED: CEPHALEXIN500 M1 PO (06:59)
== END 2025-03-09 07:10 | disposition home or self-care (01) ==
LOC: ED 05:54
DX: S92.532A Displaced fracture of distal phalanx of left lesser toe(s), initial encounter for closed fracture (principal); I10 Essential (primary) hypertension; E78.00 Pure hypercholesterolemia, unspecified; E11.40 Type 2 diabetes mellitus with diabetic neuropathy, unspecified; F17.210 Nicotine dependence, cigarettes, uncomplicated; Z90.89 Acquired absence of other organs; X50.1XXA Overexertion from prolonged static or awkward postures, initial encounter; Y93.89 Activity, other specified; Y92.89 Other specified places as the place of occurrence of the external cause; Y99.8 Other external cause status